=== PATIENT | female | born 1960 | race Caucasian/White ===

== ENCOUNTER 2018-09-03 09:23 | Outpatient (REF) | payer OTHER, SELFPAY ==
[2018-09-03 12:48] LABS: Hemoglobin A1C 5.1 % (4.5-6.2)
[2018-09-03 13:00] LABS: Anion Gap 9.5 mmol/L (3-11); CO2 26.5 mmol/L (21.0-32.0); Chloride 106 mmol/L (98-107); Potassium 4.2 mmol/L (3.5-5.1); Sodium 142 mmol/L (136-145)
[2018-09-03 14:34] LABS: BUN 12 mg/dL (7-18); CREATININE 0.72 mg/dL (0.55-1.02); Calcium 9.2 mg/dL (8.5-10.1); Ferritin 192 ng/mL (8-388); Glucose 94 mg/dL (70-100)
== END 2018-09-03 09:43 ==
LOC: NCHCN 09:23
PROVIDERS: PCP Family Medicine; Visit Provider Family Medicine
DX: R73.9 Hyperglycemia, unspecified (principal); G25.81 Restless legs syndrome
CPT/HCPCS: 80048; 82728; 83036

== ENCOUNTER 2019-09-03 09:09 | Outpatient (REF) | payer OTHER, SELFPAY ==
[2019-09-03 12:47] LABS: Anion Gap 8.6 mmol/L (3-11); BUN 16 mg/dL (7-18); CO2 27.4 mmol/L (21.0-32.0); CREATININE 0.81 mg/dL (0.55-1.02); Calcium 9.1 mg/dL (8.5-10.1); Chloride 103 mmol/L (98-107); Glucose 92 mg/dL (70-100); Potassium 4.7 mmol/L (3.5-5.1); Sodium 139 mmol/L (136-145)
== END 2019-09-03 09:29 ==
LOC: NCHCN 09:09
PROVIDERS: PCP Family Medicine; Visit Provider Family Medicine
DX: R73.9 Hyperglycemia, unspecified (principal); I10 Essential (primary) hypertension
CPT/HCPCS: 80048

== ENCOUNTER 2019-10-05 14:51 | Emergency (ER) | payer OTHER, SELFPAY ==
[2019-10-05 14:54] VITALS: BP 162/107; PULSE 141; RESP 22; TEMP 37; O2SAT 96
--- NOTE | 2019-10-05 15:07 | ED.GENADUL_ITS ---
Discharge Plan Disposition Patient Disposition: HOME Condition: Improving Discharge Details Chief Complaint: Vascular Clinical Impression: Deep vein thrombosis of left lower extremity Primary Care Provider: Kati Massey ED Provider: Jarod Varghese Home Meds and New Rx's Prescriptions: New apixaban 5 mg tablet 10 mg PO BID Qty: 30 RF: 0 Continued multivitamin 1 EACH capsule 1 ea PO DAILY RF: 0 acetaminophen [Tylenol] 325 MG tablet 650 mg PO Q4H PRN PRNQty: 30 RF: 0 amlodipine 5 mg Tablet 5 mg PO DAILY RF: 0 paroxetine HCl 10 mg Tablet 10 mg PO DAILY RF: 0 Estroven Cmplt Menopause Rlf 4 mg Tablet 4 mg PO DAILY RF: 0 Discontinued ibuprofen [Advil] 200 MG tablet 600 - 800 mg PO TID PRNRF: 0 Discharge Instructions Instructions: Deep Venous Thrombosis (ED) Additional Instructions: Please begin apixaban/Eliquis as prescribed. The dosing will be 10 mg twice daily for 7 days, then 5 mg twice daily. I discussed her case tonight with Dr. Og and they will call you to arrange an outpatient follow-up in clinic for recheck. I recommend you hold ibuprofen while taking Eliquis. You may use Tylenol if needed for aches or pains. Continue all other regular medications, including amlodipine. Return if you develop chest pain or difficulty breathing. Medical Decision Making 58-year-old female presents with left leg swelling and cramping discomfort over 2 days time. She was anxious that her amlodipine may have been the cause and therefore stopped the medication on her own. States she is had no medication since the swelling began. She denies chest pain or shortness of breath. No prolonged immobilization or trauma. Most consistent with a probable DVT as well as overlying anxiety and mild reflex tachycardia given the patient's lack of amlodipine for 2 days time. She is given her amlodipine dose for today, Ativan was ordered but held after patient improved on her own. The patient's pulse corrected to 40-50 points to 90-100 following these interventions. The patient's ultrasound reveals positive DVT of the distal left external iliac through the proximal posterior tibial veins. I discussed the case with Dr. Og, on-call for Dr. Massey. We will start the patient on apixaban, she will have a follow-up in clinic in approximate 1 week's time. She understands homecare as well as emergent indications for reevaluation. HPI General Mode of arrival: ambulatory . Date/Time Provider Initiated Documentation: 10/05/19 14:51 . Limitations to Documentation: no limitations . Information obtained by: patient and family . History of Present Illness 58 year old F presents to the emergency department with the chief complaint of Left leg swollen and cramping discomfort for 2 days, described as moderate, Quality is described as dull and constant, and is localized to the lower extremity. Patient reports no radiation. Patient started experiencing this day(s) and it has been constant. No relieving factors improve symptom(s), No exacerbating factors reported . Patient notes other (Anxious. She is not taking her amlodipine due to fear of it causing swelling of her left leg). Patient did receive the following treatments prior to arrival, none Related Data Home Medications Medication Instructions Recorded Confirmed multivitamin 1 ea PO DAILY NS 09/30/17 10/05/19 acetaminophen [Tylenol] 650 mg PO Q4H PRN PRN #30 tab 11/06/17 10/05/19 Estroven Cmplt Menopause Rlf 4 mg PO DAILY 10/05/19 10/05/19 amlodipine 5 mg PO DAILY 10/05/19 10/05/19 apixaban 10 mg PO BID #30 tab 10/05/19 paroxetine HCl 10 mg PO DAILY 10/05/19 10/05/19 Previous Rx's Medication Instructions Recorded acetaminophen [Tylenol] 650 mg PO Q4H PRN PRN #30 tab 11/06/17 apixaban 10 mg PO BID #30 tab 10/05/19 Allergies Allergy/AdvReac Type Severity Reaction Status Date / Time codeine AdvReac Intermediate Nausea Unverified 10/05/19 15:02 morphine AdvReac Intermediate Nausea Unverified 10/05/19 15:02 General Stated Complaint: Vascular CRISTAL: 3 Review of Systems Narrative: Anxious. Not taking her amlodipine. No chest pain or shortness of breath. [facility] Medical History Cholelithiasis colon polyp Hypertension Obesity Surgical History (Updated 08/12/18 @ 14:36 by Cnekt IA) Biopsy of breast (~2001) Cholecystectomy (11/06/17) Colonoscopy - IV Sedation Colonoscopy - MAC (11/03/17) Family History Father Personal history of malignant neoplasm Throat cancer Social History Smoking/Tobacco Use Status: Never Alcohol Intake: current Alcohol Intake frequency: holidays/special occasions only Drug use: Never Substance use type: does not use Do you feel safe at home: Yes Do you feel safe in your relationship?: Yes Exam Narrative Exam Narrative: GEN: awake, alert, oriented 3. Pleasant, well groomed, interactive. HEAD: Normocephalic, atraumatic ENT: Mucous membranes moist, oropharynx unremarkable, External ear exam unremar kable EYES: PERRL, EOMI NECK: Full ROM, no NITHIN, no menigismus CHEST/RESP: Nontender, clear to auscultation bilateral, no wheeze/rhonchi/rales CARDIOVASCULAR: RRR, no murmur, rub raymundo. 2+ Rad pulse bilateral ABDOMEN: Soft, nontender, no mass. +Bowel sounds EXT: Full ROM, left leg edematous and swollen from the mid thigh distally. Palpable femoral pulses bilaterally. Neuro: Grossly normal neurologic exam, conversant, interactive. Psych: Speech fluent, thoughts congruent, affect anxious and tearful Course Vital Signs Vital signs: Vital Signs Temperature 37 C 10/05/19 14:54 Pulse 141 H 10/05/19 14:54 Respiratory Rate 22 10/05/19 14:54 Blood Pressure 162/107 H 10/05/19 14:54 Pulse Oximetry 96 10/05/19 14:54 Temperature 37 C 10/05/19 14:54 Temperature Source Temporal Artery Scan 10/05/19 14:54 Pulse 141 H 10/05/19 14:54 Respiratory Rate 22 10/05/19 14:54 Respiratory Effort Non-Labored 10/05/19 15:01 Blood Pressure 162/107 H 10/05/19 14:54 Blood Pressure Position Sitting 10/05/19 14:54 Pulse Oximetry 96 10/05/19 14:54 Oxygen Delivery Method Room Air 10/05/19 14:54 Oxygen Flow Rate 0 10/05/19 14:54 Pain Level 8 10/05/19 14:54
--- NOTE | 2019-10-05 15:26 | DI.US_ITS ---
EXAM: US LOWER EXTREMITY VENOUS LT CLINICAL HISTORY: Swelling and pain, r/o DVT TECHNIQUE: Ultrasound performed using standard protocol. COMPARISON: No exams were available for comparison FINDINGS: Thrombus is visible from the distal left external iliac vein through the common femoral, superficial femoral, popliteal and into one of the posterior tibial veins in the proximal calf. The remainder of the additional calf veins are free of thrombus. No superficial thrombophlebitis is seen. There is no Lacey's cyst or hematoma. IMPRESSION: Deep venous thrombosis from the distal left external iliac through one of the proximal posterior tibi al veins.
[2019-10-05 15:33] LABS: Abs Immature Grans 0.01 k/cumm (0.0-0.09); Absolute Basophil Count 0.03 k/cumm (0.0-0.2); Absolute Eosinophil Count 0.27 k/cumm (0.0-0.7); Absolute Lymphocyte Count 1.23 k/cumm (1.2-3.4); Absolute Monocyte Count 0.79 k/cumm (0.11-0.7); Absolute Neutrophil Count 6.95 k/cumm (1.2-6.7); Basophils % 0.3; Eosinophils % 2.9; HGB 13.6 g/dL (12.0-15.5); Immature Grans % 0.1; Lymphocytes % 13.3; Mean Corpuscular Hemoglobin 30.4 pg (27.0-33.0); Mean Corpuscular Volume 89.5 fL (80-95); Mean Platelet Volume 9.8 fL (8.0-11.0); Monocytes % 8.5; Neutrophils % 74.9; Platelet Count 168 x1000/uL (130-400); RBC 4.47 m/cumm (4.00-5.20); RBC Distribution Width 12.2 % (11.7-14.6); White Blood Cell Count 9.28 k/cumm (4.4-10.8)
[2019-10-05 15:45] LABS: ALT 11 U/L (14-59); AST 17 U/L (15-37); Albumin 3.9 g/dL (3.4-5.0); Alkaline Phosphatase 90 U/L (46-116); Anion Gap 11.8 mmol/L (3-11); BUN 10 mg/dL (7-18); Bilirubin, Total 0.8 mg/dL (0.2-1.0); CO2 25.2 mmol/L (21.0-32.0); CREATININE 0.86 mg/dL (0.55-1.02); Calcium 9.3 mg/dL (8.5-10.1); Chloride 103 mmol/L (98-107); Glucose 133 mg/dL (74-106); Potassium 3.7 mmol/L (3.5-5.1); Sodium 140 mmol/L (136-145); Total Protein 7.8 g/dL (6.4-8.2)
[2019-10-05 15:49] LABS: PTT Activated 24.7 sec (21.0-31.4); Prothrombin Time 10.1 sec (9.3-11.0)
[2019-10-05] MEDS: Normal Saline 250 ML 500 ML IV (16:00)
[2019-10-05] MEDS: amLODIPine 5 MG TAB PO (16:05)
[2019-10-05] MEDS: Apixaban 5 MG TAB 10 MG PO (16:30)
[2019-10-05 19:32] VITALS: BP 98/44; PULSE 85; RESP 16; TEMP 37.2; O2SAT 99
== END 2019-10-05 16:45 | disposition home or self-care (01) ==
PROVIDERS: Emergency Provider Emergency Medicine; PCP Family Medicine
DX: I82.402 Acute embolism and thrombosis of unspecified deep veins of left lower extremity (principal); R60.0 Localized edema; F41.9 Anxiety disorder, unspecified; T46.5X6A Underdosing of other antihypertensive drugs, initial encounter; Z91.128 Patient's intentional underdosing of medication regimen for other reason; I10 Essential (primary) hypertension
CPT/HCPCS: 36415; 80053; 96360; 99284; 85025; 85610; 85730; 93971; J3490

== ENCOUNTER 2019-11-03 11:14 | Outpatient (CLI) | payer OTHER, SELFPAY ==
[2019-11-05 14:44] LABS: ANA Interpretation Positive (Negative)
[2019-11-05 16:39] LABS: Factor V Leiden(R506Q) Mut Negative (Negative)
[2019-11-05 16:45] LABS: Prothrombin G20210A Mutation Negative (Negative)
== END 2019-11-03 11:34 ==
PROVIDERS: PCP Family Medicine; Visit Provider Family Medicine
DX: I82.402 Acute embolism and thrombosis of unspecified deep veins of left lower extremity (principal)
CPT/HCPCS: 36415; 81240; 81241; 86038

== ENCOUNTER 2019-12-08 01:15 | Outpatient (CLI) | payer OTHER, SELFPAY ==
--- NOTE | 2019-12-08 | DI.MAMMO_ITS ---
EXAM: MG MAMMO SCREENING CLINICAL HISTORY: [facility] Z00.00, SCREENING. TECHNIQUE: Full field digital CC and MLO mammographic images were obtained with 3D tomosynthesis and utilizing computer aided detection (CAD). COMPARISON: . 2009 through 2016 FINDINGS: Breast Density - Category B - Scattered areas of fibroglandular density There are surgical clips in the left breast related to previous biopsy. There is mild scarring in th is region. Masses: None seen. Microcalcifications: No suspicious pleomorphic-type calcifications are seen. Skin Thickening/Nipple Retraction: None. Axilla: Unremarkable. IMPRESSION: 1. BI-RADS Cat 2 - Benign Findings No significant interval change with no specific features of susu duarte noted. 2. Unless there is more urgent need, screening mammography is recommended, as per [employer] guidelines. A negative radiographic report should not delay biopsy if a dominant or clinically suspicious mass is present. Up to ten percent of cancers are not identified on mammography. A negative report may reinforce clinical impression. Adenosis and dense breasts may obscure an underlying neoplasm. False positive reports average 6 to 10%. Patient will receive a letter notifying them of these results.
== END 2019-12-08 01:35 ==
PROVIDERS: PCP Family Medicine; Visit Provider Family Medicine
DX: Z12.31 Encounter for screening mammogram for malignant neoplasm of breast (principal)
CPT/HCPCS: 77063; 77067

== ENCOUNTER 2019-12-28 02:40 | Outpatient (CLI) | payer OTHER, SELFPAY ==
--- NOTE | 2019-12-28 | DI.US_ITS ---
EXAM: US LOWER EXTREMITY VENOUS LT CLINICAL HISTORY: ACUTE DVT LT LEG I82.402 TECHNIQUE: Ultrasound performed using standard protocol. COMPARISON: US LOWER EXTREMITY VENOUS LT from 10/05/2019 FINDINGS: The left external iliac vein shows noncompressible thrombus. Distal to this area the common femoral , superficial femoral, popliteal and calf veins appear free of thrombus. No saphenous thrombosis is seen. IMPRESSION: Deep venous thrombosis in the left external iliac vein. Remainder of the deep venous system is free of thrombus. DATA REPOSITORY:
== END 2019-12-28 03:00 ==
PROVIDERS: PCP Family Medicine; Visit Provider Family Medicine
DX: I82.422 Acute embolism and thrombosis of left iliac vein (principal)
CPT/HCPCS: 93971

== ENCOUNTER 2020-06-16 15:53 | Outpatient (REF) | payer OTHER, SELFPAY ==
--- NOTE | 2020-06-16 13:45 | PAPFT_PTH ---
PATIENT: Fany Bowens LOC: [facility]#:[id number] AGE/SX: 59/F ROOM: RE06/16/[address]: Kati Massey : 1960 BED: DIS: 06/16/2020 SPEC #: [id number] RECD: 06/19/20 13:06 STATUS: PIERCE REAdan #: [id number] MARTHA: 06/16/20 13:[address]: Kati Massey DEPT: [facility] Cytology RECD BY: Ariane Delgado Tissues: 1 - CX/ENDOCX FOR PAP SMEARS Procedures: PAP THIN PREP/[facility] Screening HPV DNA PROBE Comments: [id number]
== END 2020-06-16 16:13 ==
LOC: NCHCN 15:53
PROVIDERS: PCP Family Medicine; Visit Provider Family Medicine
DX: Z12.4 Encounter for screening for malignant neoplasm of cervix (principal); Z11.51 Encounter for screening for human papillomavirus (HPV)
CPT/HCPCS: 88142; 87624

== ENCOUNTER 2021-04-18 08:28 | Outpatient (REF) | payer OTHER, SELFPAY ==
[2021-04-18 13:28] LABS: HCT 43.2 % (36.0-46.0); HGB 14.3 g/dL (11.2-15.7); MCH 31.4 pg (27.0-33.0); MCHC 33.1 % (32.0-36.0); MCV 94.9 fL (80-95); MPV 9.4 fL (8.0-11.0); Platelet Count 271 10^3/uL (130-400); RBC 4.55 10^6/uL (3.93-5.22); RDW 12.1 % (11.7-14.6); RDW-SD 42.3 fL; WBC 5.36 10^3/uL (4.4-10.8)
[2021-04-18 13:46] LABS: Hemoglobin A1C 5.3 % (<5.7)
[2021-04-18 13:47] LABS: ALT 17 U/L (14-59); AST 15 U/L (15-37); Albumin 3.8 g/dL (3.4-5.0); Alkaline Phosphatase 87 U/L (46-116); Anion Gap 9.8 mmol/L (3-11); BUN 20 mg/dL (7-18); Bilirubin, Total 0.4 mg/dL (0.2-1.0); CO2 25.2 mmol/L (21.0-32.0); CREATININE 0.8 mg/dL (0.55-1.02); Calcium 9.1 mg/dL (8.5-10.1); Calculated LDL 157 mg/dL (<100); Chloride 108 mmol/L (98-107); Cholesterol 276 mg/dL (<200); Glucose 100 mg/dL (74-106); HDL Cholesterol 108 mg/dL (40-60); Magnesium 2.1 mg/dL (1.8-2.4); Potassium 4.9 mmol/L (3.5-5.1); Sodium 143 mmol/L (136-145); Total Protein 7.1 g/dL (6.4-8.2); Triglyceride 59 mg/dL (<150)
== END 2021-04-18 08:29 | disposition home or self-care (01) ==
LOC: NCHCN 08:28
PROVIDERS: PCP Family Medicine; Visit Provider Family Medicine
DX: I10 Essential (primary) hypertension (principal); R60.0 Localized edema; E66.9 Obesity, unspecified
CPT/HCPCS: 80053; 80061; 85027; 83036; 83735

== ENCOUNTER 2021-08-07 23:15 | Emergency (ER) | payer OTHER, SELFPAY ==
[2021-08-07] VITALS (9 sets, daily range): BP systolic 128–137; BP diastolic 72–82; PULSE 77–89; RESP 17–24; TEMP 36.4; O2SAT 96–98
--- NOTE | 2021-08-07 23:15 | DI.CT_ITS ---
Exam(s) CT CHEST/ABD/PEL W EXAM: CT CHEST/ABD/PEL W CLINICAL HISTORY: fall, altered, drunk, vomiting and diarrhea. TECHNIQUE: Imaging Protocol: Axial computed tomography images with coronal and sagittal reformatted images were created and reviewed CONTRAST MATERIAL: Intravenous: Omnipaque 350 Contrast volume:100 ml Oral: None COMPARISON: No exams were available for comparison FINDINGS: CHEST: LUNGS: . No large lung contusion. No pleural effusions. No pneumothorax. No obvious no clavicle no r rib fractures. MEDIASTINUM: No evidence of significant mediastinal hematoma. No obvious aortic trauma. No incident al adenopathy. There is a large nodule in the right thyroid lobe which measures approximately 2 by 1 .9 cm. Follow-up ultrasound is recommended. CARDIAC: Heart size normal. Very small pericardial effusion.Caliber of the thoracic aorta is within normal limits. OSSEOUS: No significant osseous lesions.. ABDOMEN: There is no ascites. LIVER: There is a well-defined hypodensity measuring 3 by 2 cm which has appearance of a probable messi ign cyst. Another smaller 4-5 millimeter hypodensity lower down the right hepatic lobe is noted whic h is either small cyst or hemangioma. GALLBLADDER/BILIARY: The gallbladder surgically absent. CBD is not dilated. PANCREAS: No evidence of pancreatic mass nor dilatation of the pancreatic duct. SPLEEN: Spleen size is normal. No evidence of splenic laceration. Splenic and portal veins are hagan nt. ADRENALS: There are no significant adrenal masses. KIDNEYS: No calculi nor hydronephrosis. No solid renal masses. Small cyst in superior pole left kidne y measuring 6 millimeters. ABDOMINAL AORTA: Abdominal aorta is intact as are the aortoiliac segments bilaterally. LYMPH NODES: There is no retroperitoneal nor paraaortic adenopathy. ABDOMINAL WALL: No evidence of significant anterior abdominal wall nor inguinal hernia. GI: No evidence of bowel wall hematoma nor mesenteric hematoma. PELVIS: LYMPH NODES: There is no intrapelvic nor inguinal adenopathy. GI: No evidence of appendicitis.No evidence of sigmoid diverticulitis. URINARY BLADDER: No calculi nor masses evident REPRODUCTIVE: Uterus size age-appropriate. No abnormal adnexal masses although there are few slightl y prominent veins in the lower pelvis. OSSEOUS: No significant osseous lesions. IMPRESSION: 1. No significant intrathoracic trauma findings. Incidentally noted is a prominent nodule in the rig ht thyroid lobe which requires ultrasound follow-up when clinically feasible. 2. No significant acute trauma sequelae in the abdomen and pelvis 3. Benign cysts in the liver, as described above.. 4. Gallbladder surgically absent. The biliary tree is not dilated. RADIATION DOSE DELIVERED: 1,626.57mGy.cm Total DLP DATA REPOSITORY: All CT scans at this facility are submitted to the National Radiology Data Registry (NRDR) Dose Index Registry (DIR) with the [employer] ([employer]). RADIATION OPTIMIZATION: All CT scans at this facility use at least one of these dose optimization te chniques: automated exposure control; mA and/or kV adjustment per patient size (includes targeted exa ms where dose is matched to clinical indication); or iterative reconstruction.
--- NOTE | 2021-08-07 23:15 | RT.EKG_ITS ---
APPROVED REPORT Exam: Resting ECG Reason for Exam: fall Patient Location: E HR:78 bpm ECG Measurements Heart Rate 78 AXIS OR 169 P 63 QRSd 101 QRS 44 QT 418 T 37 QTc 477 Conclusion Sinus rhythm...normal P axis, V-rate 60- 99 Physician: Rate 78, intervals normal, sinus rhythm, no significant ST elevation or depression. Inver jocelin T waves present in V1. No evidence of STEMI. No other significant abnormalities
--- NOTE | 2021-08-07 23:15 | DI.CT_ITS ---
Exam(s) CT HEAD CERV SPINE FACIAL WO EXAM: CT HEAD CERV SPINE FACIAL WO CLINICAL HISTORY: fall, hit face, on thinners. TECHNIQUE: Imaging Protocol: Axial computed tomography images with coronal and sagittal reformatted images were created and reviewed COMPARISON: No exams were available for comparison FINDINGS: CT BRAIN: There are no skull fractures. Paranasal sinus findings (see facial CT report). There is no evidence of intracranial hemorrhage, mass effect, or shift of midline structures. There are no extra-axial fluid collections. The ventricles are not enlarged or shifted and there is no blo od within the ventricular system nor within the basal cisterns. CT MAXILLOFACIAL BONES: Subtle nondisplaced fractures right maxillary sinus. No evidence of orbital blowout fracture. Small amount of mucosal thickening-fluid in the right maxillary sinus. No evidence of nasal bone fracture . CT CERVICAL SPINE: There is a minimally displaced fracture of the right-side of the odontoid and adjacent C2 vertebral b dashawn. Fracture line does not extend to the superior aspect of the odontoid nor into the foramen trans verse area and posterior osseous elements. No other fractures evident. No malalignment of the facet joints. Degenerative disc disease at C5-6 level noted. IMPRESSION: The main finding here is a fracture involving the right-side of the odontoid and into the C2 vertebra l body. Fracture does not extend to the level of the inferior C2 endplate nor into the pedicles and laminae a nor with into the transverse processes. No retropulsed bone fragments into the spinal titi l. There does not appear to be prominent surrounding hematoma nor acute compromise of the spinal can al. No other fractures identified in the cervical spine. Nondisplaced fractures of the inferolateral wall the right maxillary sinus. No evidence of orbital b lowout fracture. No evidence of nasal bone fracture nor fracture of the mandible and zygomatic arche s. No acute intracranial findings. Study 1st read by [facility]. RADIATION DOSE DELIVERED: 2,007.35mGy.cm Total DLP 2,007.35mGy.cm Total DLP DATA REPOSITORY: All CT scans at this facility are submitted to the National Radiology Data Registry (NRDR) Dose Index Registry (DIR) with the [employer] (ACR). RADIATION OPTIMIZATION: All CT scans at this facility use at least one of these dose optimization te chniques: automated exposure control; mA and/or kV adjustment per patient size (includes targeted exa ms where dose is matched to clinical indication); or iterative reconstruction.
[2021-08-07 23:35] LABS: Abs Immature Grans 0.11 10^3/uL (0.0-0.06); Absolute Basophil Count 0.05 10^3/uL (0.0-0.2); Absolute Eosinophil Count 0.25 10^3/uL (0.0-0.7); Absolute Lymphocyte Count 2.74 10^3/uL (1.2-3.4); Absolute Monocyte Count 0.41 10^3/uL (0.1-0.8); Absolute Neutrophil Count 4.35 10^3/uL (1.2-6.7); Basophils % 0.6; Eosinophils % 3.2; HCT 40.4 % (36.0-46.0); HGB 13.5 g/dL (11.2-15.7); Immature Grans % 1.4; Lymphocytes % 34.6; MCHC 33.4 % (32.0-36.0); MCV 92.7 fL (80-95); Monocytes % 5.2; Nucleated RBC 0 %; Platelet Count 225 10^3/uL (130-400); RBC 4.36 10^6/uL (3.93-5.22); RDW 11.7 % (11.7-14.6); RDW-SD 40.2 fL; WBC 7.91 10^3/uL (4.4-10.8)
[2021-08-07 23:36] LABS: BE (Venous) -1 mmol/L (-2-3); HCO3 (Venous) 25 mmol/L (23-28); O2 Sat (Venous) 61 %; TCO2 (Venous) 23 mmol/L (24-29); pCO2 (Venous) 52 mmHg (41-51); pO2 (Venous) 35 mmHg
--- NOTE | 2021-08-07 23:37 | W.ED.GENAD ---
Discharge Plan Disposition Patient Disposition: [facility] Condition: Stable Discharge Details Clinical Impression: Closed type III fracture of odontoid process, Elevated ETOH level, Fall, Contusion of face Primary Care Provider: Kati Massey ED Provider: Kleber Saldivar Home Meds and New Rx's Prescriptions: No Action multivitamin 1 EACH capsule 1 ea PO DAILY RF: 0 acetaminophen [Tylenol] 325 MG tablet 650 mg PO Q4H PRN PRNQty: 30 RF: 0 amlodipine 5 mg Tablet 5 mg PO DAILY RF: 0 paroxetine HCl 10 mg Tablet 10 mg PO DAILY RF: 0 Estroven Cmplt Menopause Rlf 4 mg Tablet 4 mg PO DAILY RF: 0 apixaban 5 mg tablet 10 mg PO BID Qty: 30 RF: 0 Medical Decision Making 60-year-old female with a past medical history of a DVT on Eliquis, hypertension, previous gallstones, cholecystectomy, who presents today for evaluation of fall, intoxication, and trauma to the face. Per EMS the patient drank a bottle of wine earlier and subsequently fell and hit her face. EMS was called, patient was not able to get up. She was brought in for further evaluation. In transit the patient had an episode of vomiting and diarrhea. Patient admits to pain in her face. She denies any pain anywhere else however she is notably intoxicated. EMS did attempt to place a c-collar however the patient started vomiting and ripped this off. No other complaints at this time. No other modifying factors Physical exam demonstrates abrasions and bruises over the face, no hemotympanums or other significant abnormalities. Patient does demonstrate a small excoriation over the right hip, and tenderness over the midline cervical spine. No other evidence of significant trauma otherwise. Patient does move all extremities. C-collar was applied on arrival. Because of the patient's blood thinner use there is concern for intracranial bleeding. We will get a CT scan of the head and neck, because of the fall and the patient's altered status as well as her vomiting and diarrhea we will get a CT scan of the chest and abdomen. We will gently rehydrate monitor closely and reassess. 2:[address] scan has returned, there is evidence of a type III odontoid fracture at C2. Patient has remained on C-spine precautions. Aside for a small maxillary sinus wall fracture on the right no other acute process otherwise on the CT head, chest abdomen or pelvis. Laboratory work-up is relatively unremarkable. Lipase is slightly high at 776. Urinalysis shows a few RBCs but is otherwise unremarkable. Urine drug screen negative, alcohol elevated at 226. Covid test is negative. With the patient's evidence of the unstable cervical spine fracture we did consult [facility] and discussed the case with trauma. Discussed the case with Dr. Figueroa, he agrees with the assessment and plan. Patient will be brought down/transferred to [facility] for further neurosurgical intervention. Of note I did go back and reassess the patient prior to transfer, and she still demonstrates good 5 out of 5 strength in both of her upper extremities and lower extremities, good sensation throughout her arms, no clinical evidence at this time of central or anterior cord syndrome. I have extensively reviewed the treatment plan with the patient. I have addressed all patient concerns at this time. I have also discussed the plan with the admitting physician and they agree with the current assessment and plan and have agreed to assume responsibility for the patient. All parties demonstrate verbal understanding and agreement with our assessment and plan at this time. The documentation in this chart was dictated using [employer] dictation software. Please excuse any dictation errors. At time of transfer the patient was reassessed and continued to demonstrate current medical stability. No signs of acute respiratory distress requiring intubation, hemodynamic instability requiring pressor support, or rapidly declining mental status. The patient is stable for transport. EKG 23: 26 Rate 78, intervals normal, sinus rhythm, no significant ST elevation or depression. Inverted T waves present in V1. No evidence of STEMI. No other significant abnormalities FINDINGS: Brain: Normal. No hemorrhage. Unremarkable white matter. No mass effect. Extra-axial space: No evidence of subdural hemorrhage. Cerebral ventricles: No ventriculomegaly. Paranasal sinuses: Moderate mucosal thickening noted in the sphenoid sinus and right maxillary sinus. Mastoid air cells: Visualized mastoid air cells are well aerated. Bones/joints: Negative for skull fracture. Soft tissues: Right frontal scalp hematoma. No foreign bodies. IMPRESSION: Negative for intracranial hemorrhage or other acute intracranial abnormality FINDINGS: Orbital cavity: Orbits are normal. Globes are unremarkable. Bones/joints: Nondisplaced fracture noted at the inferolateral wall of the right maxillary sinus. Bony orbits are intact without fracture. No evidence of fracture in the mandible. Nasal bones are intact. Zygomatic arches are intact. Paranasal sinuses: Mucosal thickening noted in the ethmoid air cells call the sphenoid sinus, and right maxillary sinus. Soft tissues: Right frontal scalp hematoma. Foci of air are noted in the soft tissues lateral to the right maxillary sinus. Several teeth are missing. IMPRESSION: Nondisplaced fractures in the maxillary sinus wall on the right. FINDINGS: Bones/joints: A fracture is noted at the C2 level. An oblique mildly comminuted fracture line extends through the base of the odontoid process on the right. The fracture continues into the vertebral body, but does not extend through to the left of the odontoid process or the inferior C2 endplate. The C2 pedicles and articular processes are intact without fracture. The transverse processes and foramen transversarium are intact. There are no other fractures observed in the cervical spine. The C1 ring is intact. The occipital condyles are intact. Discs/Spinal canal/Neural foramina: Moderate disc space narrowing and osteophyte formation are noted at C5-C6. There is no significant spinal canal stenosis or neural foraminal narrowing. Thyroid: Solid nodule right thyroid 1.9 cm. Lungs: Lung apices are normal. Soft tissues: Unremarkable. IMPRESSION: 1. Fracture at C2, considered an incomplete type 3 odontoid fracture. 2. Solid nodule right thyroid greater than 1.5 cm. Advise nonemergent follow-up ultrasound. REFERENCES: Joe Roach., et al. (2015). Managing Incidental Thyroid Nodules Detected on Imaging: White Paper of the ACR Incidental Thyroid Findings Committee. Journal of the [place] [employer], 12(2), 143-150. Thank you for allowing us to participate in the care of your patient. Dictated and Authenticated by: Damien Winston MD 08/08/2021 1:38 AM Eastern Time ([place] & [place]) HPI General Date/Time Provider Initiated Documentation: 08/07/21 23:24. HPI Narrative: 60-year-old female with a past medical history of a DVT on Eliquis, hypertension, previous gallstones, cholecystectomy, who presents today for evaluation of fall, intoxication, and trauma to the face. Per EMS the patient drank a bottle of wine earlier and subsequently fell and hit her face. EMS was called, patient was not able to get up. She was brought in for further evaluation. In transit the patient had an episode of vomiting and diarrhea. Patient admits to pain in her face. She denies any pain anywhere else however she is notably intoxicated. EMS did attempt to place a c-collar however the patient started vomiting and ripped this off. No other complaints at this time. No other modifying factors Related Data Home Medications Medication Instructions Recorded Confirmed multivitamin 1 ea PO DAILY NS 09/30/17 10/05/19 acetaminophen [Tylenol] 650 mg PO Q4H PRN PRN #30 tab 11/06/17 10/05/19 Estroven Cmplt Menopause Rlf 4 mg PO DAILY 10/05/19 10/05/19 amlodipine 5 mg PO DAILY 10/05/19 10/05/19 apixaban 10 mg PO BID #30 tab 10/05/19 paroxetine HCl 10 mg PO DAILY 10/05/19 10/05/19 Previous Rx's Medication Instructions Recorded acetaminophen [Tylenol] 650 mg PO Q4H PRN PRN #30 tab 11/06/17 apixaban 10 mg PO BID #30 tab 10/05/19 Allergies Allergy/AdvReac Type Severity Reaction Status Date / Time codeine AdvReac Intermediate Nausea Unverified 10/05/19 15:02 morphine AdvReac Intermediate Nausea Unverified 10/05/19 15:02 General CRISTAL: 3 Review of Systems All systems reviewed & are unremarkable except as noted in HPI and below PFSH Medical History (Updated 08/08/21 @ 02:41 by Kleber Saldivar DO) Cholelithiasis colon polyp Hypertension Obesity Surgical History Biopsy of breast (~2001) Cholecystectomy (11/06/17) Colonoscopy - IV Sedation Colonoscopy - MAC (11/03/17) Family History Father Personal history of malignant neoplasm Throat cancer Social History Smoking/Tobacco Use Status: Never Smoking risk assessment performed?: Yes Alcohol Intake: current Alcohol Intake frequency: holidays/special occasions only Drug use: Never Substance use type: does not use Do you feel safe at home: Yes Do you feel safe in your relationship?: Yes Exam Narrative Exam Narrative: 1.Const: Well-nourished, Well-developed, appearing stated age 2.Eyes: PERRL, no conjunctival injection, and symmetrical lids. 3.ENT: Mild bruising to the face and nose. No bleeding lacerations. Mild bruising to the orbits. No nasal septal hematoma. Moist MM. Neck: Symmetric, trachea midline, No thyromegaly. There is no evidence of raccoon eyes, harvey sign, CSF rhinorrhea, mastoid tenderness, cranial crepitus, hemotympanum, exophthalmos, or hyphema. Patient demonstrates intact dentition with no signs of tooth avulsion or fracture, no signs of jaw deformity, no evidence of a LeFort's fracture, with an intact palate, nose and orbital region. There is no evidence of a nasal septal hematoma. No proptosis. Jaw closes symmetrically. Airway is clear. 4.CVS: Regular rate and rhythm, Normal s1 and s2. No murmurs, carotid bruits, rubs, or gallops. Radial pulses 2+ bilaterally and symmetric. Dorsalis pedis pulses 2+ bilaterally and symmetric. 2+ capillary refill. No evidence of distant heart sounds. No extremity edema. No evidence of gross hemorrhage. 5.RESP: Airway clear, no obstructions. No abrasions or ecchymosis. Chest movement symmetric with respirations. No chest wall tenderness. Trachea midline. No crepitus. No step offs. No paradoxical movements. Lungs are clear to auscultation bilaterally. No rales, rhonchi, wheezing or stridor. Breath sound symmetric. No Sucking chest wounds. No clinical evidence of significant chest trauma. 6.GI: Soft, nondistended, nontender. Bowel tones normoactive. No masses or organomegaly. No ecchymosis or abrasions. No periumbilical ecchymosis or seatbelt sign. No flank or CVA tenderness. No clinical signs of significant trauma. Genital Exam: Intact and traumatically unremarkable genital and rectal exam with no significant bruising, blood, or deformity. Rectal tone normal, stool without gross blood. No clinical evidence of significant abdominal trauma. 7.MSK: No gross deformities or discolorations or lesions. There is a mild bruise/excoriation over the right hip though. Tolerates full range of motion of extremities without tenderness. All compartments of upper and lower extremities are soft with no tenderness. Vascular exam demonstrates brisk capillary refill and intact pulses in all extremities. Pelvic exam demonstrates a stable pelvis, nontender to lateral compression and palpation of symphysis pubis.. No clinical evidence of significant musculoskeletal trauma. Patient does demonstrate midline cervical spine tenderness at C4-C5-C6, no thoracic or lumbar spine tenderness 8.Skin: Warm, Dry. No rashes or lesions. Please see musculoskeletal 9.Neuro: Patient moves all extremities, is notably intoxicated. No clear evidence focal neurologic deficits. 10.Psych: Intoxicated
[2021-08-07] MEDS: Normal Saline 1,000 ML 1000 ML IV (23:38)
[2021-08-07 23:50] LABS: Ammonia 10 umol/L (11-32)
[2021-08-07 23:51] LABS: PTT Activated 22.3 sec (21.0-27.5); Prothrombin Time 10.1 sec (9.3-11.0)
[2021-08-08] VITALS (25 sets, daily range): BP systolic 109–134; BP diastolic 64–81; PULSE 70–104; RESP 14–24; O2SAT 92–98
[2021-08-08 00:01] LABS: ALT 21 U/L (14-59); AST 26 U/L (15-37); Albumin 3.9 g/dL (3.4-5.0); Alkaline Phosphatase 77 U/L (46-116); Anion Gap 8.9 mmol/L (3-11); BUN 9 mg/dL (7-18); Bilirubin, Total 0.3 mg/dL (0.2-1.0); CO2 27.1 mmol/L (21.0-32.0); CREATININE 0.8 mg/dL (0.55-1.02); Calcium 8.7 mg/dL (8.5-10.1); Chloride 105 mmol/L (98-107); ETHANOL BLOOD 226.9 mg/dL (<3); Glucose 135 mg/dL (74-106); Lipase 776 U/L (73-393); Potassium 3.7 mmol/L (3.5-5.1); Sodium 141 mmol/L (136-145); Total Protein 7.1 g/dL (6.4-8.2)
[2021-08-08 00:03] LABS: Troponin I < 0.05 ng/mL (<0.06)
[2021-08-08 00:07] LABS: Source Nasal/Nares
[2021-08-08 01:00] LABS: COVID-19 PCR Negative (Negative)
[2021-08-08] MEDS: Omnipaque 350 MG/ML 100 ML BTL IJ (01:36)
--- NOTE | 2021-08-08 01:38 | DI.VRAD_ITS ---
Addendum created by Damien Winston MD on 08/08/2021 1:39:28 AM EDT: THIS REPORT CONTAINS FINDINGS THAT MAY BE CRITICAL TO PATIENT CARE. The findings were verbally communicated via telephone conference with VAISHALI HIDALGO at 1:31 AM EDT on 08/08/2021. The findings were acknowledged and understood. Initial report created on 08/08/2021 1:38:24 AM EDT: PROCEDURE INFORMATION: Exam: CT Head Without Contrast Exam date and time: 08/07/2021 11:27 PM Age: 60 years old Clinical indication: Injury or trauma; Blunt trauma (contusions or hematomas); Consciousness not specified; Nose; Injury date: 08/07/21; Injury details: Fall, hit face, on thinners TECHNIQUE: Imaging protocol: Computed tomography of the head without contrast. Radiation optimization: All CT scans at this facility use at least one of these dose optimization techniques: automated exposure control; mA and/or kV adjustment per patient size (includes targeted exams where dose is matched to clinical indication); or iterative reconstruction. COMPARISON: No relevant prior studies available. FINDINGS: Brain: Normal. No hemorrhage. Unremarkable white matter. No mass effect. Extra-axial space: No evidence of subdural hemorrhage. Cerebral ventricles: No ventriculomegaly. Paranasal sinuses: Moderate mucosal thickening noted in the sphenoid sinus and right maxillary sinus. Mastoid air cells: Visualized mastoid air cells are well aerated. Bones/joints: Negative for skull fracture. Soft tissues: Right frontal scalp hematoma. No foreign bodies. IMPRESSION: Negative for intracranial hemorrhage or other acute intracranial abnormality. PROCEDURE INFORMATION: Exam: CT Maxillofacial Without Contrast Exam date and time: 08/07/2021 11:27 PM Age: 60 years old Clinical indication: Injury or trauma; Blunt trauma (contusions or hematomas); Consciousness not specified; Nose; Injury date: 08/07/21; Injury details: Fall, hit face, on thinners TECHNIQUE: Imaging protocol: Computed tomography images of the face without contrast. Radiation optimization: All CT scans at this facility use at least one of these dose optimization techniques: automated exposure control; mA and/or kV adjustment per patient size (includes targeted exams where dose is matched to clinical indication); or iterative reconstruction. COMPARISON: No relevant prior studies available. FINDINGS: Orbital cavity: Orbits are normal. Globes are unremarkable. Bones/joints: Nondisplaced fracture noted at the inferolateral wall of the right maxillary sinus. Bony orbits are intact without fracture. No evidence of fracture in the mandible. Nasal bones are intact. Zygomatic arches are intact. Paranasal sinuses: Mucosal thickening noted in the ethmoid air cells call the sphenoid sinus, and right maxillary sinus. Soft tissues: Right frontal scalp hematoma. Foci of air are noted in the soft tissues lateral to the right maxillary sinus. Several teeth are missing. IMPRESSION: Nondisplaced fractures in the maxillary sinus wall on the right. PROCEDURE INFORMATION: Exam: CT Cervical Spine Without Contrast Exam date and time: 08/07/2021 11:27 PM Age: 60 years old Clinical indication: Injury or trauma; Blunt trauma (contusions or hematomas); Consciousness not specified; Nose; Injury date: 08/07/21; Injury details: Fall, hit face, on thinners TECHNIQUE: Imaging protocol: Computed tomography images of the cervical spine without contrast. Radiation optimization: All CT scans at this facility use at least one of these dose optimization techniques: automated exposure control; mA and/or kV adjustment per patient size (includes targeted exams where dose is matched to clinical indication); or iterative reconstruction. COMPARISON: No relevant prior studies available. FINDINGS: Bones/joints: A fracture is noted at the C2 level. An oblique mildly comminuted fracture line extends through the base of the odontoid process on the right. The fracture continues into the vertebral body, but does not extend through to the left of the odontoid process or the inferior C2 endplate. The C2 pedicles and articular processes are intact without fracture. The transverse processes and foramen transversarium are intact. There are no other fractures observed in the cervical spine. The C1 ring is intact. The occipital condyles are intact. Discs/Spinal canal/Neural foramina: Moderate disc space narrowing and osteophyte formation are noted at C5-C6. There is no significant spinal canal stenosis or neural foraminal narrowing. Thyroid: Solid nodule right thyroid 1.9 cm. Lungs: Lung apices are normal. Soft tissues: Unremarkable. IMPRESSION: 1. Fracture at C2, considered an incomplete type 3 odontoid fracture. 2. Solid nodule right thyroid greater than 1.5 cm. Advise nonemergent follow-up ultrasound. REFERENCES: Joe Roach., et al. (2015). Managing Incidental Thyroid Nodules Detected on Imaging: White Paper of the ACR Incidental Thyroid Findings Committee. Journal of the [employer] [place] [employer], 12(2), 143-150. Dictated and Authenticated by: Damien iWnston MD. Ordering:QIAN Shahid MD
[2021-08-08] MEDS: Normal Saline - Diluent 50 ML VIAL IV (01:39)
--- NOTE | 2021-08-08 01:43 | DI.VRAD_ITS ---
PROCEDURE INFORMATION: Exam: CT Chest With Contrast; Diagnostic Exam date and time: 08/07/2021 1:10 AM Age: 60 years old Clinical indication: Injury or trauma; Generalized; Blunt trauma (contusions or hematomas); Injury date: 08/07/21; Injury details: Fall, altered, drunk, vomiting and diarrhea TECHNIQUE: Imaging protocol: Diagnostic computed tomography of the chest with contrast. Radiation optimization: All CT scans at this facility use at least one of these dose optimization techniques: automated exposure control; mA and/or kV adjustment per patient size (includes targeted exams where dose is matched to clinical indication); or iterative reconstruction. Contrast material: OMNIPAQUE 350; Contrast volume: 100 ml; Contrast route: INTRAVENOUS (IV); COMPARISON: SC ABDOMEN ULTRASOUND (P) 09/24/2017 3:51 PM FINDINGS: Thyroid: There is a 1.6 x 2 cm hypodense nodule in the right thyroid lobe. A punctate focus of calcification is also seen in the adjacent parenchyma. Lungs: Dependent atelectasis. Pleural spaces: Unremarkable. No pneumothorax. No pleural effusion. Heart: Heart size is normal. Trace pericardial fluid. Major airways are patent. Mediastinal space: There is mild wall thickening circumferentially of the distal esophagus which may be related to mild inflammation. Aorta: Aorta is mildly atherosclerotic without aneurysm or dissection. Lymph nodes: Unremarkable. No enlarged lymph nodes. Bones/joints: Mild degenerative changes in the spine. Soft tissues: Unremarkable. IMPRESSION: 1. No evidence of trauma. 2. Mild circumferential wall thickening of the distal esophagus which may be related to esophagitis. 3. 2 cm hypodense nodule in the right thyroid lobe. Suggest follow-up outpatient ultrasound if not previously evaluated. PROCEDURE INFORMATION: Exam: CT Abdomen And Pelvis With Contrast Exam date and time: 08/07/2021 1:10 AM Age: 60 years old Clinical indication: Injury or trauma; Generalized; Blunt trauma (contusions or hematomas); Injury date: 08/07/21; Injury details: Fall, altered, drunk, vomiting and diarrhea TECHNIQUE: Imaging protocol: Computed tomography of the abdomen and pelvis with contrast. Radiation optimization: All CT scans at this facility use at least one of these dose optimization techniques: automated exposure control; mA and/or kV adjustment per patient size (includes targeted exams where dose is matched to clinical indication); or iterative reconstruction. Contrast material: OMNIPAQUE 350; Contrast volume: 100 ml; Contrast route: INTRAVENOUS (IV); COMPARISON: SC ABDOMEN ULTRASOUND (P) 09/24/2017 3:51 PM FINDINGS: Liver: 2.4 x 1.8 cm cyst in the left liver. A 3 mm hypodensity seen in the right liver too small to characterize, also likely a cyst. Gallbladder and bile ducts: Cholecystectomy. No biliary ductal dilatation. Pancreas: Normal. No ductal dilation. Spleen: Punctate calcification in the spleen. Adrenal glands: Normal. No mass. Kidneys and ureters: Kidneys enhance symmetrically. No stones or hydronephrosis. 5 mm hypodensity in the left renal upper pole too small to characterize, likely a cyst. No imaging follow-up needed. Stomach and bowel: Unremarkable. No obstruction. No mucosal thickening. Appendix: Normal appendix. Intraperitoneal space: Unremarkable. No free air. No significant fluid collection. Vasculature: Mild atherosclerotic disease without aortic aneurysm or dissection. Lymph nodes: Unremarkable. No enlarged lymph nodes. Urinary bladder: Unremarkable as visualized. Reproductive: Unremarkable as visualized. Bones/joints: Degenerative changes in the spine. No acute fracture. Soft tissues: Unremarkable. IMPRESSION: No acute findings. Dictated and Authenticated by: Fiona Graham MD. Ordering:QIAN Shahid MD
[2021-08-08 01:47] LABS: Bilirubin Negative (Negative); Blood Small (Negative); Clarity Clear (Clear); Glucose Negative (Negative); Ketones Negative (Negative); Leukocyte Esterase Negative (Negative); Nitrite Negative (Negative); Specific Gravity >= 1.030 (1.005-1.025); Urobilinogen 0.2 EU/dL (Up TO 0.2); pH 5.5 (5-8)
[2021-08-08 01:56] LABS: Bacteria Rare HPF (Negative); C & S Indicated? No; Casts 3-5 Hyaline LPF (Negative); Crystals Negative HPF (Negative); Epithelial Cells Few HPF (Negative); Mucus Negative (Negative); WBC 0-2 HPF (0-5)
[2021-08-08 01:57] LABS: *AMPHETAMINES SCREEN URINE Negative (Negative); *BARBITURATES SCREEN URINE Negative (Negative); *BENZODIAZEPINES SCREEN URINE Negative (Negative); Cannabinoids THC Negative (Negative); Cocaine Screen,Urine Negative (Negative); METHADONE URINE SCREEN Negative (Negative); OPIATES URINE SCREEN Negative (Negative)
[2021-08-08 01:58] LABS: Tricyclic Antidepressants Negative (Negative)
--- NOTE | 2021-08-08 02:30 | DI.CT_ITS ---
Exam(s) CT THORACIC LUMBAR SPINE REC EXAM: CT THORACIC LUMBAR SPINE REC CLINICAL HISTORY[place] [facility] [place] COMPARISON: No exams were available for comparison FINDINGS: THORACIC SPINAL COLUMN: There slight indentation of the superior endplate of T1 but without obvious f racture lines. No scoliosis evident in the thoracic spinal column. LUMBOSACRAL SPINAL COLUMN: No fractures nor listhesis. No facet malalignment. IMPRESSION: Mild indentation of superior endplate of T1 without obvious distinct fracture lines. Correlation wit h site of tenderness is recommended. No other osseous findings in the thoracic and lumbar spines.
== END 2021-08-08 02:48 | disposition short-term general hospital (02) ==
LOC: ER 08-08 02:57
PROVIDERS: Emergency Provider Student in an Organized Health Care Education/Training Program; PCP Family Medicine
DX: S12.120A Other displaced dens fracture, initial encounter for closed fracture (principal); S00.83XA Contusion of other part of head, initial encounter; S02.40CA Maxillary fracture, right side, initial encounter for closed fracture; W19.XXXA Unspecified fall, initial encounter; F10.188 Alcohol abuse with other alcohol-induced disorder; Y90.7 Blood alcohol level of 200-239 mg/100 ml; R11.2 Nausea with vomiting, unspecified; Z79.01 Long term (current) use of anticoagulants; Z20.822 Contact with and (suspected) exposure to COVID-19; Z03.818 Encounter for observation for suspected exposure to other biological agents ruled out
CPT/HCPCS: 36415; 51701; 74177; 80053; 80307; 82805; 83690; 87635; 93005; 96360; 96361; 99285; 70450; 70486; 71260; 72125; 80320; 81003; 81015; 82140; 84484; 85025; 85610; 85730; 93010; J3490

== ENCOUNTER 2022-01-29 02:32 | Outpatient (CLI) | payer OTHER, SELFPAY ==
--- NOTE | 2022-01-29 12:41 | DI.MAMMO_ITS ---
Exam(s) MAMMO SCREENING EXAM: MAMMO SCREENING CLINICAL HISTORY: SCREENING, Z12.39 TECHNIQUE: Bilateral full field digital CC and MLO mammographic images were obtained with 3D tomosyn thesis and utilizing computer aided detection (CAD). COMPARISON: Available for comparison. FINDINGS: Masses/Architectural Distortion: None seen. The patient is status post left breast biopsy. Microcalcifications: No suspicious pleomorphic-type are seen. Skin Thickening/Nipple Retraction: None. IMPRESSION: 1. No significant interval change with no specific features of malignancy noted. 2. Unless there is more urgent need, screening mammography is recommended, as per [employer] guidelines. BI-RADS Category 2 - Benign Findings Breast Density - Category B - Scattered areas of fibroglandular density Breast density category C or D implies that the patient has dense breast tissue. Dense breast tissue is very common and is not abnormal but dense breast tissue can make it harder to find cancer on a ma mmogram. Also, dense breast tissue may increase their breast cancer risk. This information about the result of the mammogram report was provided to the patient to raise their awareness. Use this report when you speak with the patient about their risks for breast cancer, which includes their family hist ory. At that time, you may recommend for more screening tests (Ultrasound or MRI) as they might be us eful based on their risk. A negative radiographic report should not delay biopsy if a dominant or clinically suspicious mass is present. Up to ten percent of cancers are not identified on mammography. A negative report may reinforce clinical impression. Adenosis and dense breasts may obscure an underlying neoplasm. False positive reports average 6 to 10%. Patient will receive a letter notifying them of these results.
--- NOTE | 2022-01-29 13:00 | DI.US_ITS ---
Exam(s) US THYROID EXAM: US THYROID CLINICAL HISTORY: SOLITARY THYROID NODULE, E04.1. TECHNIQUE: Ultrasound thyroid performed using standard protocol. COMPARISON: No exams were available for comparison FINDINGS: ISTHMUS: 2.4 mm RIGHT LOBE: Size: 2.1 AP by 2.7 cm transverse by 5.2 cm craniocaudad cm Echogenicity: Normal. Vascularity: Normal. Nodules: There is a 1.9 AP by 1.9 transverse by 2.6 craniocaudad solid isoechoic mass in the right lo be of the thyroid gland. It is not taller than wide. It has smooth margins. There are punctate ech ogenic foci present. This corresponds to a TI-RADS level 4 nodule. Due to its size, FNA is recommen ded. There is a 1 x 0.8 x 0.9 cm mixed cystic and solid nodule hypoechoic nodule in the inferior socorro e of the right lobe of the thyroid gland. It is not taller than wide. There are no echogenic foci i n the margins are smooth. This correspond to a TI-RADS level 3 nodule. No follow-up is recommended. LEFT LOBE: Size: 1.0 AP by 1.5 transverse by 4.4 craniocaudad cm Echogenicity: Normal. Vascularity: Normal. Nodules: No suspicious nodules are present. OTHER FINDINGS: None. IMPRESSION: Thyroid nodules as described above. 2.6 cm right thyroid nodule. FNA is recommended. DATA REPOSITORY:
== END 2022-01-29 02:52 ==
PROVIDERS: PCP Family Medicine; Visit Provider Family Medicine
DX: E04.1 Nontoxic single thyroid nodule (principal); E07.89 Other specified disorders of thyroid; Z12.31 Encounter for screening mammogram for malignant neoplasm of breast; Z98.890 Other specified postprocedural states
CPT/HCPCS: 77063; 77067; 76536

== ENCOUNTER 2022-02-05 03:12 | Outpatient (CLI) | payer OTHER, SELFPAY ==
[2022-02-05 17:20] LABS: TSH (W/Ref FT4) 0.27 uIU/mL (0.36-3.74)
[2022-02-05 17:43] LABS: FREE T4 0.83 ng/dL (0.76-1.46)
== END 2022-02-05 03:13 | disposition home or self-care (01) ==
LOC: LBO 03:12
PROVIDERS: PCP Family Medicine; Visit Provider Otolaryngology
DX: E04.2 Nontoxic multinodular goiter (principal)
CPT/HCPCS: 36415; 84439; 84443

== ENCOUNTER → 2022-03-07 00:35 | Outpatient (CLI) | payer OTHER, SELFPAY ==
--- NOTE | 2022-03-07 08:15 | DI.US_ITS ---
Exam(s) US NEEDLE LOCAL OTHER WO RAD EXAM: US NEEDLE LOCAL OTHER WO RAD CLINICAL HISTORY: t4 right thyroid nodule,e04.2,ultrasound guided bx TECHNIQUE: Ultrasound performed using standard protocol. COMPARISON: US US THYROID from 01/29/2022 FINDINGS: Ultrasound guidance was utilized by Dr. Jaxon Castillo during biopsy of reported right thyroid nodule. Please see Dr. Castillo's procedure note. IMPRESSION: DATA REPOSITORY:
--- NOTE | 2022-03-07 13:45 | PAPNONF_PTH ---
PATIENT: Fany Bowens LOC: [facility] U#:[id number] AGE/SX: 64/F ROOM: RE03/07/[address]: Jaxon Castillo MD : [id number] BED: DIS: SPEC #: [id number] RECD: 03/07/22 18:35 STATUS: PIERCE MAX #: [id number] MARTHA: 03/07/22 13:[address]: Jaxon Castillo DEPT: [facility] Cytology RECD BY: Ariane Delgado ENTERED: 03/07/22 18:35 SP TYPE: TALIB CARPENTER DR: Kati Massey Tissues: 1 - BODY FLUID CYTO-FINE NEEDLE ASPIRATE-[facility] Procedures: BODY FLUID CYTO-FINE NEEDLE ASPIRATE-[facility] Comments: [id number]
--- NOTE | 2022-03-07 14:19 | W.PROCNOTE ---
Procedure Note Date of procedure: 03/07/22 Procedure: Ultrasound guided FNA, right thyroid nodule, pathology available Surgeon/Proceduralist/Physician: Jaxon Castillo Procedure Indications: Patient with a right-sided thyroid nodule meeting criteria for biopsy. Options were explained to the patient regarding further management. She elected undergo the above procedure. Consent was filled out and signed prior to the procedure Procedure Description: The patient was positioned in a supine position and prepped and draped in appropriate fashion. Ultrasound probe was used to identify the right-sided thyroid nodule in question, and then 1% lidocaine with 1/100,000 epinephrine was injected into the skin and subcutaneous tissues medial to the thyroid nodule. A 25-gauge 1.5 inch needle was then used under direct guidance using the ultrasound to directly biopsy the nodule. Multiple passes were made. After ensuring cellular adequacy, 2 passes were made for potential Afirma. There was no significant bleeding. The patient tolerated the procedure well. Her vital signs remained stable. Sterile dressing was applied and the patient was able to ambulate afterwards without difficulty. She will call if she does not hear from me within 1 week with regard to the pathology results. She will call with any signs of infection. She will remove the bandage tonight and not replace them. She will restart her Eliquis tonight. She will avoid anything strenuous for the next 24 hours.
== END ==
PROVIDERS: PCP Family Medicine; Visit Provider Otolaryngology
DX: E04.2 Nontoxic multinodular goiter (principal)
CPT/HCPCS: 76942; 88104

== ENCOUNTER 2022-07-15 16:47 | Outpatient (REF) | payer OTHER, SELFPAY ==
[2022-07-15 20:48] LABS: Anion Gap 9.6 mmol/L (3-11); BUN 26 mg/dL (7-18); CO2 28.4 mmol/L (21.0-32.0); CREATININE 0.9 mg/dL (0.55-1.02); Calcium 9.6 mg/dL (8.5-10.1); Chloride 105 mmol/L (98-107); Estimated GFR 72.73 (mL/min/1.73m2); Glucose 108 mg/dL (74-106); Potassium 4.4 mmol/L (3.5-5.1); Sodium 143 mmol/L (136-145); TSH (W/Ref FT4) 0.56 uIU/mL (0.36-3.74)
[2022-07-17 09:35] LABS: HIV-1/2 Ag & Ab Screen Negative (Negative)
[2022-07-17 09:54] LABS: Hepatitis C Ab w Rflx HCV PCR Negative (Negative)
== END 2022-07-15 16:48 | disposition home or self-care (01) ==
LOC: NCHCN 16:47
PROVIDERS: PCP Family Medicine; Visit Provider Family Medicine
DX: I10 Essential (primary) hypertension (principal); E04.1 Nontoxic single thyroid nodule; Z11.4 Encounter for screening for human immunodeficiency virus [HIV]; Z11.59 Encounter for screening for other viral diseases
CPT/HCPCS: 80048; 86803; 87389; 84443

== ENCOUNTER 2023-06-02 13:15 | Emergency (ER) | payer OTHER, SELFPAY ==
[2023-06-02 13:28] VITALS: BP 145/81; PULSE 107; RESP 18; TEMP 36.8; O2SAT 99
--- NOTE | 2023-06-02 15:00 | DI.CT_ITS ---
Exam(s) CT ABDOMEN PELVIS WO EXAM: CT ABDOMEN PELVIS WO CLINICAL HISTORY: rt abd pain and rt flank pain. TECHNIQUE: Imaging Protocol: Axial computed tomography images with coronal and sagittal reformatted images were created and reviewed. COMPARISON: CT CT THORACIC LUMBAR SPINE REC from 08/08/[address] CHEST/ABD/PEL W from 08/08/2021 FINDINGS: ABDOMEN: Lung Bases: There is a stable small pericardial effusion. Liver: Normal density. There are 3 stable simple cysts in the liver. No follow-up is recommended. Gallbladder and biliary tract: Status post cholecystectomy. No significant biliary ductal dilatation . There has been no change in the appearance of the bile ducts. Pancreas: Normal density, no abnormal calcifications or inflammatory process. Spleen: No suspicious lesions. Kidneys: Normal size, contour and axis.No radiodense stones or obstructive uropathy. Left parapelvic cysts. No follow-up is recommended. Adrenal glands: No mass is seen. Lymph nodes: Within normal limits. Abdominal Aorta: Abdominal portion non-dilated. Atherosclerosis. PELVIS: Bladder:Symmetric distention, no gross wall thickening. Bowel: No obstruction or bowel wall thickening. Appendix is unremarkable. Peritoneal cavity: No ascites, collection or mesenteric inflammatory response. No free air. Reproductive organs: Unremarkable as visualized. Bones: Within normal limits. Soft Tissues: Within normal limits. IMPRESSION: 1. No acute abdominal pelvic process. 2. No evidence of nephrolithiasis or hydronephrosis. 3. Status post cholecystectomy. 4. Normal appendix. 5. Findings were discussed with the emergency department at 5:17 p.m. on 06/02/2023. RADIATION DOSE DELIVERED: 1,015.8mGy.cm Total DLP DATA REPOSITORY: All CT scans at this facility are submitted to the National Radiology Data Registry (NRDR) Dose Index Registry (DIR) with the [employer] (ACR). RADIATION OPTIMIZATION: All CT scans at this facility use at least one of these dose optimization te chniques: automated exposure control; mA and/or kV adjustment per patient size (includes targeted exa ms where dose is matched to clinical indication); or iterative reconstruction.
[2023-06-02 15:06] LABS: Bilirubin Negative (Negative); Blood Trace-lysed (Negative); Clarity Clear (Clear); Glucose Negative (Negative); Ketones Negative (Negative); Leukocyte Esterase Negative (Negative); Nitrite Negative (Negative); Urobilinogen 0.2 mg/dL (Up to 0.2); pH 5.5 (5-8)
[2023-06-02 15:14] LABS: Bacteria Rare HPF (Negative); C & S Indicated? No; Casts Negative LPF (Negative); Crystals Negative HPF (Negative); Epithelial Cells Rare HPF (Negative); Mucus Trace (Negative); RBC 0-2 HPF (0-2); WBC 0-2 HPF (0-5)
[2023-06-02 15:16] LABS: Abs Immature Grans 0.02 10^3/uL (0.0-0.06); Absolute Basophil Count 0.09 10^3/uL (0.0-0.2); Absolute Eosinophil Count 0.16 10^3/uL (0.0-0.7); Absolute Lymphocyte Count 1.89 10^3/uL (1.2-3.4); Absolute Monocyte Count 0.62 10^3/uL (0.1-0.8); Absolute Neutrophil Count 4.35 10^3/uL (1.2-6.7); Basophils % 1.3; Eosinophils % 2.2; HGB 13.8 g/dL (11.2-15.7); Immature Grans % 0.3; Lymphocytes % 26.5; MCH 30.3 pg (27.0-33.0); MCHC 33.7 % (32.0-36.0); MCV 90 fL (80-95); MPV 9.3 fL (8.0-11.0); Monocytes % 8.7; Platelet Count 278 10^3/uL (130-400); RBC 4.55 10^6/uL (3.93-5.22); RDW 12.2 % (11.7-14.6); RDW-SD 39.9 fL; WBC 7.13 10^3/uL (4.4-10.8)
[2023-06-02 15:27] LABS: ALT 15 U/L (14-59); AST 14 U/L (15-37); Albumin 4.1 g/dL (3.4-5.0); Alkaline Phosphatase 105 U/L (46-116); Anion Gap 8.6 mmol/L (3-11); BUN 10 mg/dL (7-18); Bilirubin, Total 0.3 mg/dL (0.2-1.0); CO2 27.4 mmol/L (21.0-32.0); CREATININE 0.8 mg/dL (0.55-1.02); Calcium 9.4 mg/dL (8.5-10.1); Chloride 105 mmol/L (98-107); Estimated GFR 83.26 (mL/min/1.73m2); Glucose 103 mg/dL (74-106); Lipase 40 U/L (16-77); Magnesium 2.1 mg/dL (1.8-2.4); Potassium 3.8 mmol/L (3.5-5.1); Sodium 141 mmol/L (136-145); Total Protein 7.7 g/dL (6.4-8.2)
--- NOTE | 2023-06-02 15:48 | W.ED.GENAD ---
Discharge Plan Discharge Details Chief Complaint: Abd Prob Primary Care Provider: Kati Massey ED Provider: Oliver Grimes Home Meds and New Rx's Prescriptions: No Action Eliquis 2.5 mg tablet 2.5 mg PO BID losartan 50 mg tablet 50 mg PO DAILY paroxetine HCl 20 mg tablet 20 mg PO DAILY acetaminophen [Tylenol Extra Strength] 500 mg tablet 1,000 mg PO TID multivitamin Tablet 1 tab PO DAILY magnesium oxide 500 mg tablet 500 mg PO DAILY ibuprofen 200 mg tablet 200 mg PO DIRECTED PRN acetaminophen [Tylenol] 325 MG tablet 650 mg PO Q4H PRN PRNQty: 30 0RF Medical Decision Making 1545??62-year-old female status post remote cholecystectomy here with 11 days of right-sided flank pain and right abdominal pain. Patient is normotensive but tachycardic. She is uncomfortable. Patient is afebrile. Patient does have tenderness in her right abdomen. No focal right lower quadrant tenderness. Patient also with right CVA tenderness. I am concerned about renal stone versus pyelonephritis versus less likely appendicitis. Plan to obtain CT of the abdomen pelvis to assess for acute surgical pathology. I will give Toradol 30 mg IV. Initial labs reviewed and no leukocytosis. LFTs normal. Lipase normal. Urinalysis reviewed and trace blood. Lab Data Lab results reviewed: Yes I reviewed the patient's lab results. Labs: Laboratory Tests Range/Units 06/02/23 06/02/23 06/02/23 14:55 15:00 15:00 WBC (4.4-10.8) 10^3/uL 7.13 RBC (3.93-5.22) 10^6/uL 4.55 Hgb (11.2-15.7) g/dL 13.8 Hct (36.0-46.0) % 41.0 MCV (80-95) fL 90 MCH (27.0-33.0) pg 30.3 MCHC (32.0-36.0) % 33.7 RDW (11.7-14.6) % 12.2 Plt Count (130-400) 10^3/uL 278 MPV (8.0-11.0) fL 9.3 Immature Gran % 0.3 Neutrophils % 61.0 Lymphocytes % 26.5 Monocytes % 8.7 Eosinophils % 2.2 Basophils % 1.3 Nucleated RBC % (0.0-0.3) % 0.0 Absolute Neutrophils (1.2-6.7) 10^3/uL 4.35 Absolute Lymphocytes (1.2-3.4) 10^3/uL 1.89 Absolute Monocytes (0.1-0.8) 10^3/uL 0.62 Absolute Eosinophils (0.0-0.7) 10^3/uL 0.16 Absolute Basophils (0.0-0.2) 10^3/uL 0.09 Sodium (136-145) mmol/L 141 Potassium (3.5-5.1) mmol/L 3.8 Chloride (98-107) mmol/L 105 Carbon Dioxide (21.0-32.0) mmol/L 27.4 Anion Gap (3-11) mmol/L 8.6 BUN (7-18) mg/dL 10 Creatinine (0.55-1.02) mg/dL 0.8 Est GFR (CKD-EPI 2020) (mL/min/1.73m2) 83.26 Glucose (74-106) mg/dL 103 Calcium (8.5-10.1) mg/dL 9.4 Magnesium (1.8-2.4) mg/dL 2.1 Total Bilirubin (0.2-1.0) mg/dL 0.3 AST (15-37) U/L 14 L ALT (14-59) U/L 15 Alkaline Phosphatase (46-116) U/L 105 Total Protein (6.4-8.2) g/dL 7.7 Albumin (3.4-5.0) g/dL 4.1 Lipase (16-77) U/L 40 Urine Color (Yellow) Yellow Urine Clarity (Clear) Clear Urine pH (5-8) 5.5 Ur Specific Franklin (1.005-1.025) 1.010 Urine Protein (Negative) mg/dL Negative Urine Ketones (Negative) mg/dL Negative Urine Blood (Negative) Trace-lysed H Urine Nitrite (Negative) Negative Urine Bilirubin (Negative) Negative Urine Urobilinogen (Up to 0.2) mg/dL 0.2 Ur Leukocyte Esterase (Negative) Negative Urine RBC (0-2) HPF 0-2 Urine WBC (0-5) HPF 0-2 Ur Epithelial Cells (Negative) HPF Rare Urine Crystals (Negative) HPF Negative Urine Bacteria (Negative) HPF Rare Urine Casts (Negative) LPF Negative Urine Mucus (Negative) Trace Ur Culture Indicated? No Urine Glucose (Negative) mg/dL Negative HPI General Mode of arrival: ambulatory. Date/Time Provider Initiated Documentation: 06/02/23 13:36. Limitations to Documentation: no limitations. Information obtained by: patient. HPI Narrative: 62-year-old female presents with chief complaint of flank pain. Patient notes over the past 10 days she has had right-sided flank pain. She states pain is in her right sided abdomen and then radiates to her flank and back. Pain is severe and persistent. She has not taken any analgesics. No associated fever. She has had some associated nausea. No vomiting. No loose stool, melena or bright red blood per rectum. No urinary symptoms. Related Data Home Medications Medication Instructions Recorded Confirmed acetaminophen 325 mg tablet 650 mg PO Q4H PRN PRN #30 tabs 11/06/17 06/02/23 (Tylenol) acetaminophen 500 mg tablet 1,000 mg PO TID 11/23/21 06/02/23 (Tylenol Extra Strength) apixaban 2.5 mg tablet (Eliquis) 2.5 mg PO BID 11/23/21 06/02/23 ibuprofen 200 mg tablet 200 mg PO DIRECTED PRN 11/23/21 06/02/23 losartan 50 mg tablet 50 mg PO DAILY 11/23/21 06/02/23 magnesium oxide 500 mg tablet 500 mg PO DAILY 11/23/21 06/02/23 multivitamin 1 tab PO DAILY 11/23/21 06/02/23 paroxetine HCl 20 mg tablet 20 mg PO DAILY 11/23/21 06/02/23 Previous Rx's Medication Instructions Recorded acetaminophen 325 mg tablet 650 mg PO Q4H PRN PRN #30 tabs 11/06/17 (Tylenol) Allergies Allergy/AdvReac Type Severity Reaction Status Date / Time codeine AdvReac Intermediate Nausea Unverified 06/02/23 13:31 morphine AdvReac Intermediate Nausea Unverified 06/02/23 13:31 General Stated Complaint: Abd Prob CRISTAL: 3 Review of Systems All systems reviewed & are unremarkable except as noted in HPI and below Constitutional Constitutional: Denies fever(s) Gastrointestinal Gastrointestinal: Reports as per HPI PFSH All Active Problems Subclinical hypothyroidism (Acute) Multinodular thyroid (Acute) Perimenopausal (Acute) Restless leg syndrome (Acute) Epidermal cyst (Acute) Edema of both legs (Acute) Solitary thyroid nodule (Acute) Facial pain, atypical (Acute) Closed type III fracture of odontoid process (Acute) Elevated ETOH level (Acute) Fall (Acute) Contusion of face (Acute) Medical History Cholelithiasis colon polyp History of deep venous thrombosis (DVT) of distal vein of left lower extremity Lifetime 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[employer] Hx of adenomatous colonic polyps Hypertension Libido, decreased Obesity Surgical History Biopsy of breast (~2001) Cholecystectomy (11/06/17) Colonoscopy - IV Sedation Colonoscopy - MAC (11/03/17) History of wisdom tooth extraction Family History Father Personal history of malignant neoplasm Throat cancer Depression Alcohol use disorder Hypertension Social History Smoking/Tobacco Use Status: Never Smoking risk assessment performed?: Yes Alcohol Intake: current Alcohol Intake frequency: holidays/special occasions only Drug use: Never Substance use type: does not use Housing: house Pets and animals: Yes Pets and animals: dog(s) Do you feel safe at home: Yes Do you feel safe in your relationship?: Yes Exam Const General: cooperative and no acute distress HENMT Mouth: moist mucous membranes Eyes Conjunctivae: normal conjunctivae Sclera: normal sclerae Resp Auscultation: clear to auscultation bilaterally, no rales, no rhonchi and no wheezes Cardio Rate: regular rate and not tachycardic Rhythm: regular rhythm GI Palpation: soft, not firm, no guarding, no masses, not rigid and tender (Right mid abdomen) Auscultation: normal bowel sounds Back/Spine/Pelvis Back: CVA tenderness (rt) Other: No rash Skin General skin exam: no rashes or lesions noted Neuro General: patient alert, patient awake and tone normal Extrem General: no edema Psych Appearance: grossly normal Mental Status: mental status grossly normal Course Vital Signs Vital signs: Vital Signs Temperature 36.8 C 06/02/23 13:28 Pulse 107 H 06/02/23 13:28 Respiratory Rate 18 06/02/23 13:28 Blood Pressure 145/81 H 06/02/23 13:28 Pulse Oximetry 99 06/02/23 13:28 Temperature 36.8 C 06/02/23 13:28 Temperature Source Temporal Artery Scan 06/02/23 13:28 Pulse 107 H 06/02/23 13:28 Respiratory Rate 18 06/02/23 13:28 Respiratory Effort Normal 06/02/23 13:30 Blood Pressure 145/81 H 06/02/23 13:28 Blood Pressure Position Sitting 06/02/23 13:28 Pulse Oximetry 99 06/02/23 13:28 Oxygen Delivery Method Room Air 06/02/23 13:28 Oxygen Flow Rate 0 06/02/23 13:28 Pain Level 7 06/02/23 13:28 Lab/Test Results Lab/Test Results: Laboratory Tests Range/Units 06/02/23 06/02/23 06/02/23 14:55 15:00 15:00 WBC (4.4-10.8) 10^3/uL 7.13 RBC (3.93-5.22) 10^6/uL 4.55 Hgb (11.2-15.7) g/dL 13.8 Hct (36.0-46.0) % 41.0 MCV (80-95) fL 90 MCH (27.0-33.0) pg 30.3 MCHC (32.0-36.0) % 33.7 RDW (11.7-14.6) % 12.2 Plt Count (130-400) 10^3/uL 278 MPV (8.0-11.0) fL 9.3 Immature Gran % 0.3 Neutrophils % 61.0 Lymphocytes % 26.5 Monocytes % 8.7 Eosinophils % 2.2 Basophils % 1.3 Nucleated RBC % (0.0-0.3) % 0.0 Absolute Neutrophils (1.2-6.7) 10^3/uL 4.35 Absolute Lymphocytes (1.2-3.4) 10^3/uL 1.89 Absolute Monocytes (0.1-0.8) 10^3/uL 0.62 Absolute Eosinophils (0.0-0.7) 10^3/uL 0.16 Absolute Basophils (0.0-0.2) 10^3/uL 0.09 Sodium (136-145) mmol/L 141 Potassium (3.5-5.1) mmol/L 3.8 Chloride (98-107) mmol/L 105 Carbon Dioxide (21.0-32.0) mmol/L 27.4 Anion Gap (3-11) mmol/L 8.6 BUN (7-18) mg/dL 10 Creatinine (0.55-1.02) mg/dL 0.8 Est GFR (CKD-EPI 2020) (mL/min/1.73m2) 83.26 Glucose (74-106) mg/dL 103 Calcium (8.5-10.1) mg/dL 9.4 Magnesium (1.8-2.4) mg/dL 2.1 Total Bilirubin (0.2-1.0) mg/dL 0.3 AST (15-37) U/L 14 L ALT (14-59) U/L 15 Alkaline Phosphatase (46-116) U/L 105 Total Protein (6.4-8.2) g/dL 7.7 Albumin (3.4-5.0) g/dL 4.1 Lipase (16-77) U/L 40 Urine Color (Yellow) Yellow Urine Clarity (Clear) Clear Urine pH (5-8) 5.5 Ur Specific Franklin (1.005-1.025) 1.010 Urine Protein (Negative) mg/dL Negative Urine Ketones (Negative) mg/dL Negative Urine Blood (Negative) Trace-lysed H Urine Nitrite (Negative) Negative Urine Bilirubin (Negative) Negative Urine Urobilinogen (Up to 0.2) mg/dL 0.2 Ur Leukocyte Esterase (Negative) Negative Urine RBC (0-2) HPF 0-2 Urine WBC (0-5) HPF 0-2 Ur Epithelial Cells (Negative) HPF Rare Urine Crystals (Negative) HPF Negative Urine Bacteria (Negative) HPF Rare Urine Casts (Negative) LPF Negative Urine Mucus (Negative) Trace Ur Culture Indicated? No Urine Glucose (Negative) mg/dL Negative PAWSS Have you Been Recently Intoxicated or Drunk Within the Last 30 days?: No Have you Ever Experienced Previous Episodes of Alcohol Withdrawal?: No Have you ever Experienced Withdrawal Seizures?: No Have you ever Experienced Delirium Tremens(DT)s?: No Have you ever undergone Alcohol Rehabilitation Treatment (i.e, inpt ot outpatient treatment programs)?: No Have you ever Experienced Blackouts?: No Have you ever Combined Alcohol with other Downers within the last 90 days?: No Have you ever Combined Alcohol with any other Substance of Abuse during the last 90 days?: No Result: 0
[2023-06-02] MEDS: Ketorolac 30 MG/ML VIAL IVP (15:57)
--- NOTE | 2023-06-02 17:27 | W.EDPROG ---
Date of service: 06/02/23 Time of Service: 17:27 Medical Decision Making Patient was signed out to me by my colleague Dr. Oliver Grimes. Please refer to his HPI, physical exam, assessment and plan. At time of signout we are awaiting CT scan results. CT scan results have returned, no evidence of kidney stone or acute process in the abdomen per radiology. Patient has resolution of her pain after NSAID therapy here in the ED. No evidence of UTI, white count, bandemia or left shift. No evidence of other concerning etiology. Patient feels well and would like to go home. Patient will be discharged home. Suspect potential for passed kidney stone, psoas spasm, or potentially constipation. Patient does admit to constipation, we will give Colace. Discussed red flags for which to return. I have extensively reviewed the treatment plan and discharge instructions with the patient. I have addressed all patient concerns at this time. The patient was made aware of what symptoms to monitor for that would warrant a return to the emergency department. Discussed the plan with the patient, they demonstrate verbal understanding and agreement with our assessment and plan at this time. The documentation in this chart was dictated using [employer] dictation software. Please excuse any dictation errors. FINDINGS: ABDOMEN: Lung Bases: There is a stable small pericardial effusion. Liver: Normal density. There are 3 stable simple cysts in the liver. No follow-up is recommended. Gallbladder and biliary tract: Status post cholecystectomy. No significant biliary ductal dilatation. There has been no change in the appearance of the bile ducts. Pancreas: Normal density, no abnormal calcifications or inflammatory process. Spleen: No suspicious lesions. Kidneys: Normal size, contour and axis.No radiodense stones or obstructive uropathy. Left parapelvic cysts. No follow-up is recommended. Adrenal glands: No mass is seen. Lymph nodes: Within normal limits. Abdominal Aorta: Abdominal portion non-dilated. Atherosclerosis. PELVIS: Bladder:Symmetric distention, no gross wall thickening. Bowel: No obstruction or bowel wall thickening. Appendix is unremarkable. Peritoneal cavity: No ascites, collection or mesenteric inflammatory response. No free air. Reproductive organs: Unremarkable as visualized. Bones: Within normal limits. Soft Tissues: Within normal limits. IMPRESSION: 1. No acute abdominal pelvic process. 2. No evidence of nephrolithiasis or hydronephrosis. 3. Status post cholecystectomy. 4. Normal appendix. 5. Findings were discussed with the emergency department at 5:17 p.m. on 06/02/2023. Sign Out Sign Out Data: Sign Out Comment: Plan to follow-up ct and labs. Patient has received Toradol 30 mg IV. Reassess patient for disposition. Last updated by Oliver Grimes MD at 06/02/23 15:53 Discharge Plan Disposition Patient Disposition: Home Discharge Details Clinical Impression: Right flank pain, Constipation Primary Care Provider: Kati Massey ED Provider: Oliver Grimes Home Meds and New Rx's Prescriptions: New docusate sodium [Colace] 100 mg capsule 100 mg PO BID Qty: 20 0RF No Action Eliquis 2.5 mg tablet 2.5 mg PO BID losartan 50 mg tablet 50 mg PO DAILY paroxetine HCl 20 mg tablet 20 mg PO DAILY acetaminophen [Tylenol Extra Strength] 500 mg tablet 1,000 mg PO TID multivitamin Tablet 1 tab PO DAILY magnesium oxide 500 mg tablet 500 mg PO DAILY ibuprofen 200 mg tablet 200 mg PO DIRECTED PRN acetaminophen [Tylenol] 325 MG tablet 650 mg PO Q4H PRN PRNQty: 30 0RF Discharge Instructions Instructions: Constipation (ED), Flank Pain (ED) Additional Instructions: At this time your laboratory work-up and CAT scan show no evidence of significant abnormality. Your pain may be secondary to a passed kidney stone, a muscle spasm of your psoas muscle, or potentially constipation. Please take Tylenol and Motrin as needed for pain. Please take Colace to help with your stools to keep them soft. Make sure to drink 3 to 4 cups of water every time you take one of the Colace pills. If you notice any worsening of your symptoms, or any new symptoms such as vomiting, diarrhea, fever, chills, shortness of breath, chest pain, numbness, weakness, or fainting , please return immediately to the emergency department for reevaluation. Please follow up with your primary care provider as soon as possible for reassessment and reevaluation. As always, it was a pleasure participating in your medical care today. Referrals: Kati Massey MD [Primary Care Provider] -
== END 2023-06-02 17:48 | disposition home or self-care (01) ==
PROVIDERS: Emergency Provider Student in an Organized Health Care Education/Training Program; PCP Family Medicine
DX: K59.00 Constipation, unspecified (principal); R10.9 Unspecified abdominal pain
CPT/HCPCS: 80053; 83690; 96374; 99284; 74176; 81003; 81015; 83735; 85025; J1885

== ENCOUNTER 2023-07-14 09:40 | Day surgery (SDC) | payer OTHER, SELFPAY ==
--- NOTE | 2023-07-13 19:26 | W.PM.DSUDISC ---
Date of service: 07/14/23 Time of Service: 11:27 Discharge Plan Disposition Patient Disposition: Home Condition: Good Discharge Details Reason For Visit: Screening colonoscopy Attending Provider: Jaxon Zamorano Primary Care Provider: Kati Massey Home Meds and New Rx's Prescriptions: Continued losartan 50 mg tablet 50 mg PO DAILY multivitamin Tablet 1 tab PO DAILY magnesium oxide 500 mg tablet 500 mg PO DAILY Patient Comments: more of a winter supplement ibuprofen 200 mg tablet 200 mg PO DIRECTED PRN acetaminophen [Tylenol] 325 MG tablet 650 mg PO Q4H PRN PRNQty: 30 0RF docusate sodium [Colace] 100 mg capsule 100 mg PO BID Qty: 20 0RF Held Eliquis 2.5 mg tablet 2.5 mg PO BID Hold Instructions: Resume on 07/15/23. Discontinued bisacodyl [Dulcolax (bisacodyl)] 5 mg tablet,delayed release (DR/EC) 5 mg PO ONCE Qty: 4 0RF Rx Instructions: Take per colonoscopy instructions provided by ordering providers office polyethylene glycol 3350 17 gram/dose powder 17 g PO ONCE Qty: 238 0RF Rx Instructions: Take per colonoscopy instructions provided by ordering providers office Discharge Instructions Instructions: Diverticulosis (GEN), Diverticulosis Diet (GEN), Colorectal Polyps (GEN) Additional Instructions: Page, we are able to do your colonoscopy today without any difficulty. Your prep was excellent. I did find 1 small polyp. I removed this and completely. Incidentally, he also have mild internal hemorrhoids, as well as diverticulosis. Diverticula are weak spots that occur in the colon wall. They can get infected, and this is typically experienced as sharp pain usually in the left lower abdomen with associated nausea and fevers. In severe cases, patients need to be treated with antibiotics. I will attach some general information here regarding diverticulosis, and its management. I have also supplied some information on colon and rectal polyps. I will be in touch when I get the results of the polyp report for my final recommendations on your next colonoscopy. In the meantime, please hold your Eliquis until tomorrow. You can restart it at your regular dosing at that point. 1. If tolerated, consume a soft, low fiber diet for 1-2 days. 2[address] Do not drive, drink alcohol, operate machinery, make critical decisions, or do activities that require coordination or balance for 24 hours. 3. Because air was put into your colon during the procedure, expelling air from your rectum (passing gas or farting) is normal. 4. You may not have a bowel movement for 1-3 days because of the colonoscopy prep. This is normal. 5. Go directly to the emergency room if you notice any of the following: Develop chills (warm to touch), or if you have a thermometer and your temperature is above 101 Difficulty breathing or difficultly swallowing Persistent vomiting Severe abdominal pain, other than gas cramps Severe chest pain Black, tarry stools Any bleeding ? exceeding one tablespoon 6. Call your physician if the site where your intravenous was started becomes red, swollen, painful, and warm to touch. 7. Your physician has reviewed your pre-procedure medications. Please continue to take those medications as previously ordered. You will be given specific information/education regarding any changes to your medications before leaving. Activity:: Activity as Tolerated Diet:: As Tolerated Discharge Orders Discharge Orders: Discharge Order (Routine); Ordered 07/13/23 Ordered By: Jaxon Zamorano DS: Diagnosis Discharge Diagnosis (1) Screen for colon cancer: Status: Acute Asessment and Plan: Follow-up on polypectomy results
--- NOTE | 2023-07-13 19:28 | COLE_ITS ---
Date of service: 07/14/23 Time of Service: 11:29 Colonoscopy Report Date of procedure: 07/14/23 Pre-op diagnosis general: Screening colonoscopy Post-op diagnosis procedure note: other (Internal hemorrhoids, diverticulosis, colon polyp) Procedure: Colonoscopy with polypectomy Surgeon: Jaxon Zamorano Anesthesia Type: General:No Airway Estimated blood loss (mL): 5 Pathology: other (0.25 cm colon polyp at 45 cm from the anus) Complications: None Disposition: same day Indications: Fany is a 62 year old woman with a history of sessile serrated adenoma. She needs another colonoscopy Prep: Miralax/Dulcolax Procedure Start Time: 11:01 Procedure End Time: 11:17 Retraction Time: 12 Findings: 0.25 cm polyp at 45 cm from the anus; internal hemorrhoids and diverticulosis Procedure Description: After the induction of monitored anesthetic care, and with the patient in left lateral decubitus position, I began by performing an external anorectal exam.? Perineum and skin were normal, as was the anal verge.? Next, I performed a digit al rectal exam.? I did not appreciate any abnormal findings.? Next, I advanced a colonoscope into the rectal vault.? I performed retroflexion.? There is grade 1 internal hemorrhoids.? Using insufflation, I then advanced the colonoscope beyond the rectal folds and into the sigmoid colon before advancing towards the cecum.? The quality of the prep was excellent.? There was some scattered sigmoid diverticulosis. The scope was noted to be in the cecum by identification of the ileocecal valve and appendiceal orifice.? I then began withdrawing the colonoscope using repeated irrigation as necessary for full evaluation of the colonic mucosa. Around 45 cm from the anal verge I identified a 0.25 cm polyp. ?It appeared sessile in character. ?I was able to remove this with a cold forcep polypectomy. ?I examined the site, and there was minimal bleeding. ?Once this was completed, I continued to withdraw the scope and examine the remainder of the colonic mucosa.?Once the scope was withdrawn to the level of the rectum, great care was taken to examine portions of the rectal folds.? Finally, the scope was withdrawn and the patient was brought to the same-day surgery recovery unit as the anesthetic wore off. ?The findings and instructions were shared with the patient prior to discharge.
[2023-07-14 10:16] VITALS: BP 135/79; PULSE 84; RESP 20; TEMP 36.6; O2SAT 99
[2023-07-14] MEDS: Lactated Ringers 1,000 ML 80 ML IV (10:40)
--- NOTE | 2023-07-14 10:46 | ANES.PREOP_ITS ---
General Info Date of Service Date Performed: 07/14/23 Height: 5 ft 4 in Weight: 78.4 kg Body Mass Index (BMI): 29.6 Surgical Procedure: Operation Date: 07/14/23 11:20 Proposed Procedure Side Surgeon sharmila Zamorano MD Meds Allergies and Home Medications Allergies Allergy/AdvReac Type Severity Reaction Status Date / Time codeine AdvReac Intermediate Nausea Unverified 07/14/23 10:16 morphine AdvReac Intermediate Nausea Unverified 07/14/23 10:16 Home Medication Medication Instructions Recorded acetaminophen 325 mg tablet 650 mg PO Q4H PRN PRN #30 tabs 11/06/17 (Tylenol) apixaban 2.5 mg tablet (Eliquis) 2.5 mg PO BID 11/23/21 ibuprofen 200 mg tablet 200 mg PO DIRECTED PRN 11/23/21 losartan 50 mg tablet 50 mg PO DAILY 11/23/21 magnesium oxide 500 mg tablet 500 mg PO DAILY 11/23/21 multivitamin 1 tab PO DAILY 11/23/21 docusate sodium 100 mg capsule 100 mg PO BID #20 caps 06/02/23 (Colace) Current Visit Medications: Current Medications Generic Name Dose Route Start Last Admin Trade Name Freq PRN Reason Stop Dose Admin Hyoscyamine Sulfate 0.125 mg 07/13/23 19:29 Hyoscyamine 0.125 Mg Sl/Oral/Chew SL 08/12/23 19:28 DIRECTED PRN Ringer's Solution 1,000 mls @ 80 mls/hr 07/14/23 06:00 07/14/23 10:40 IV 08/10/23 23:59 80 mls/hr INFUSION PIETRO Administration IV Miscellaneous Supplies 1 each 07/14/23 06:00 Iv Access IV 08/10/23 23:59 DIRECTED PIETRO Ondansetron HCl 4 mg 07/13/23 19:29 Ondansetron 4 Mg/2 Ml Vial IVP 08/12/23 19:28 Q4H PRN PRN Nausea / Vomiting Sodium Chloride 0 ml 07/14/23 06:00 Normal Saline Flush 10 Ml Syr IV 08/10/23 23:59 PRN PRN Sodium Chloride 0 ml 07/14/23 06:00 Normal Saline 10 Ml Vial IJ 08/10/23 23:59 DIRECTED PRN Sterile Water 0 ml 07/14/23 06:00 Water,Injection,Sterile 10 Ml Vial IJ 08/10/23 23:59 DIRECTED PRN PFSH Active Problems Active Problems: Problem Status Onset Code Screen for colon cancer Z12.11 Subclinical hypothyroidism E03.8 Multinodular thyroid E04.2 Perimenopausal N95.1 Restless leg syndrome G25.81 Epidermal cyst L72.0 Edema of both legs R60.0 Solitary thyroid nodule E04.1 Facial pain, atypical G50.1 Closed type III fracture of odontoid process S12.120A Elevated ETOH level R78.0 Fall W19.XXXA Contusion of face S00.83XA Medical History Medical History Cholelithiasis colon polyp History of deep venous thrombosis (DVT) of distal vein of left lower extremity Lifetime 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[employer] Hx of adenomatous colonic polyps Hypertension Libido, decreased Obesity Surgical History Surgical History Biopsy of breast (~2001) Cholecystectomy (11/06/17) Colonoscopy - IV Sedation Colonoscopy - MAC (11/03/17) History of wisdom tooth extraction Tobacco Smoking/Tobacco Use Status: Never Alcohol Alcohol Intake: current Alcohol intake frequency: holidays/special occasions only Substance Use Substance use: Never Substance use type: does not use Vital Signs and Lab Results Vital Signs Most Recent Vital Signs in EMR: Most Recent Vital Signs Temp Pulse Resp BP Pulse Ox 36.6 C 84 20 135/79 99 07/14/23 10:16 07/14/23 10:16 07/14/23 10:16 07/14/23 10:16 07/14/23 10:16 Lab Results Blood Type / Crossmatch: No Data to Display Complete Blood Count: No Data to Display Complete Metabolic Panel: No Data to Display Liver Function Panel: No Data to Display Coagulation Panel: No Data to Display Cardiac Panel: No Data to Display Arterial Blood Gas: No Data to Display Venous Blood Gas: No Data to Display Pancreas Panel: No Data to Display Thyroid Panel: No Data to Display Infectious Disease: No Data to Display Blood Cultures: No Data to Display Toxicology Panel: No Data to Display Anesthesia Assessment and Plan Anesthesia History Personal History: No History of Anesthesia Complications Family History: No Family History of Anesthesia Complications Exercise Tolerance Exercise Tolerance: Metabolic Equivalents>4 Pertinent Negatives Pertinent Negatives: No Major Cardiovascular Symptoms or Complaints, No Major Pulmonary Symptoms or Complaints and No History of CVA/TIA Cardiac & Pulmonary Exam Cardiac Exam: Normal S1/S2 Heart Sounds Pulmonary Exam: Clear Bilateral Breath Sounds Implantable Cardiac Device Does patient have a Pacemaker or an ICD?: No Airway Exam Known Difficult Airway: No Mallampati Class: 2 Mouth Opening: Normal (> 3cm) Thyromental Distance: Greater than 3 cm Neck Range of Motion: Full ROM Neck Circumference: Normal Teeth Condition: Removable Dentures/Plates Upper (partial) and Removable Dentures/Plates Lower (partial) ASA Classification ASA Score: ASA 2 Emergency Case?: No NPO Status NPO Status: NPO Clears >2 hours, Solids >8 hours Anesthesia Plan Resuscitation Status: Full Code Anesthesia Technique: General Anesthesia Airway Planned: Natural Airway Monitors Used: Standard Monitors Preoperative Comments:: Eliquis stopped 3 days ago.
[2023-07-14 10:50] VITALS: BMI 29.6
--- NOTE | 2023-07-14 11:14 | BOWEL_PTH ---
PATIENT: Fany Bowens LOC: [facility] U#:[id number] AGE/SX: 62/F ROOM: RE07/14/[address]: Jaxon Zamorano MD : 1960 BED: DIS: 07/14/2023 SPEC #: [id number] RECD: 07/14/23 13:00 STATUS: PIERCE RE #: [id number] MARTHA: 07/14/23 11:[address]: Jaxon Zamorano DEPT: Surgical Specimen RECD BY: Ariane Delgado ENTERED: 07/14/23 13:00 SP TYPE: Bowel OTHR DR: Kati Massey Tissues: 1 - BIOPSY BOWEL Procedures: GROSS AND MICRO LEVEL 4 Comments: [id number]
[2023-07-14 11:21] VITALS: BP 122/80; PULSE 89; RESP 17; TEMP 36.6; O2SAT 100
[2023-07-14 11:51] VITALS: BP 130/82; PULSE 81; RESP 17; TEMP 37; O2SAT 100
--- NOTE | 2023-07-14 12:07 | W.ANESPOSTOP ---
Postoperative Evaluation Date, Time and Location Date Performed: 07/14/23 Time Performed: 11:54 Patient Location: Day Surgery Unit Vital Signs Most Recent Imported Vital Signs: Most Recent Vital Signs Temp Pulse Resp BP Pulse Ox 37.0 C 81 17 130/82 100 07/14/23 11:51 07/14/23 11:51 07/14/23 11:51 07/14/23 11:51 07/14/23 11:51 Pain Score Most Recent Pain Score: Most Recent Pain Score Pain Level 0 07/14/23 11:51 Assessment Mental Status: Awake (Alert & Oriented to Patient Baseline) Airway and Respiratory Function: Patent airway with normal (patient baseline) respiratory exam Cardiovascular Function: Hemodynamically Stable Hydration Status: Adequately Hydrated Nausea & Vomiting: No Nausea or Vomiting Pain: Pt. Denies Any Pain Peripheral Nerve Block: Patient did not receive a nerve block
== END 2023-07-14 11:57 | disposition home or self-care (01) ==
PROVIDERS: PCP Family Medicine; Visit Provider Surgery
PROC: 0DJD8ZZ Inspection of Lower Intestinal Tract, Via Natural or Artificial Opening Endoscopic (ICD-10-PCS; CPT 45378; principal; 2023-07-14 11:15)
DX: Z12.11 Encounter for screening for malignant neoplasm of colon (principal); Z86.010 Personal history of colon polyps; K63.5 Polyp of colon; K57.30 Diverticulosis of large intestine without perforation or abscess without bleeding; K64.0 First degree hemorrhoids
CPT/HCPCS: 45380; 88305; J2001

== ENCOUNTER 2023-07-16 14:38 | Outpatient (REF) | payer OTHER, SELFPAY ==
[2023-07-16 19:36] LABS: Hemoglobin A1C 5.2 % (<5.7)
[2023-07-16 19:46] LABS: Anion Gap 8.6 mmol/L (3-11); BUN 14 mg/dL (7-18); CO2 26.4 mmol/L (21.0-32.0); CREATININE 0.8 mg/dL (0.55-1.02); Calcium 9.7 mg/dL (8.5-10.1); Chloride 105 mmol/L (98-107); Estimated GFR 83.26 (mL/min/1.73m2); Glucose 101 mg/dL (74-106); Potassium 4.1 mmol/L (3.5-5.1); Sodium 140 mmol/L (136-145); TSH (W/Ref FT4) 0.18 uIU/mL (0.36-3.74)
[2023-07-16 20:05] LABS: FREE T4 0.95 ng/dL (0.76-1.46)
== END 2023-07-16 14:39 | disposition home or self-care (01) ==
LOC: NCHCN 14:38
PROVIDERS: PCP Family Medicine; Visit Provider Family Medicine
DX: Z00.00 Encounter for general adult medical examination without abnormal findings (principal); Z13.1 Encounter for screening for diabetes mellitus; E05.80 Other thyrotoxicosis without thyrotoxic crisis or storm; I10 Essential (primary) hypertension
CPT/HCPCS: 80048; 83036; 84439; 84443

== ENCOUNTER → 2023-07-28 02:35 | Outpatient (CLI) | payer OTHER, SELFPAY ==
--- NOTE | 2023-07-28 | DI.MAMMO_ITS ---
Exam(s) MAMMO SCREENING EXAM: MAMMO SCREENING CLINICAL HISTORY: SCREENING, Z12.39. TECHNIQUE: Bilateral full field digital CC and MLO mammographic images were obtained with 3D tomosyn thesis and utilizing computer aided detection (CAD). COMPARISON: Prior mammograms were reviewed. FINDINGS: There has been no significant change in the appearance and distribution of the fibroglandular tissue. There are no CAD designations. Surgical clips in the breast are unchanged. There are no new spiculated masses nor malignant appearing microcalcification groups. There is no significant architectural distortion nor skin thickening-retraction. IMPRESSION: No radiographic evidence of malignancy. BI-RADS Category 1 - Negative Breast Density - Category B - Scattered areas of fibroglandular density Breast density Category C or D implies that the patient has dense breast tissue. Dense breast tissue can make it harder to find cancer on a mammogram. Dense breast tissue is also associated with an incr eased risk of breast cancer. This information about the result of the mammogram report was provided to the patient to raise their awareness. Use this report when you speak with the patient about their risks for breast cancer, which includes their family history. At that time, you may recommend additional screening tests (Ultrasoun d or MRI) as these tests may add significant information. A negative radiographic report should not delay biopsy if a dominant or clinically suspicious mass is present. Up to ten percent of cancers are not identified on mammography. A negative report may reinforce clinical impression. Adenosis and dense breasts may obscure an underlying neoplasm. False positive reports average 6 to 10%. Patient will receive a letter notifying them of these results.
== END ==
PROVIDERS: PCP Family Medicine; Visit Provider Family Medicine
DX: Z12.31 Encounter for screening mammogram for malignant neoplasm of breast (principal)
CPT/HCPCS: 77063; 77067

== ENCOUNTER 2024-08-25 09:08 | Outpatient (REF) | payer OTHER, SELFPAY ==
[2024-08-25 17:33] LABS: ALT 16 U/L (14-59); AST 19 U/L (15-37); Alkaline Phosphatase 121 U/L (46-116); Anion Gap 7.3 mmol/L (3-11); BUN 13 mg/dL (7-18); Bilirubin, Total 0.49 mg/dL (0.2-1.0); CO2 26.7 mmol/L (21.0-32.0); CREATININE 0.8 mg/dL (0.55-1.02); Calcium 9.1 mg/dL (8.5-10.1); Chloride 108 mmol/L (98-107); Estimated GFR 82.74 (mL/min/1.73m2); Glucose 97 mg/dL (74-106); Potassium 4.2 mmol/L (3.5-5.1); Sodium 142 mmol/L (136-145); TSH (W/Ref FT4) 0.25 uIU/mL (0.36-3.74); Total Protein 7.1 g/dL (6.4-8.2)
[2024-08-25 17:44] LABS: COMMENT (LAB VIEW ONLY) 14.45 mg/dL; Microalb ug/mg Crea 45.7 ug/mg Cr
[2024-08-25 18:02] LABS: FREE T4 0.85 ng/dL (0.76-1.46)
== END 2024-08-25 09:09 | disposition home or self-care (01) ==
LOC: NCHCN 09:08
PROVIDERS: PCP Family Medicine; Visit Provider Family Medicine
DX: I10 Essential (primary) hypertension (principal); E05.90 Thyrotoxicosis, unspecified without thyrotoxic crisis or storm
CPT/HCPCS: 80053; 82043; 82570; 84439; 84443

== ENCOUNTER 2024-09-13 13:58 | Emergency (ER) | payer OTHER, SELFPAY ==
[2024-09-13 14:01] VITALS: BP 143/78; PULSE 117; RESP 16; TEMP 36.8; O2SAT 98
[2024-09-13 14:25] VITALS: PULSE 105; TEMP 36.2
[2024-09-13 15:17] LABS: COVID-19 PCR Negative (Negative); Influenza A PCR Negative (Negative); Influenza B PCR Negative (Negative); RSV PCR Negative (Negative)
[2024-09-13 15:19] LABS: Source Nasopharynx
--- NOTE | 2024-09-13 15:19 | W.ED.GENAD ---
Discharge Plan Disposition Patient Disposition: Home Discharge Details Clinical Impression: Acute pain of left ear Primary Care Provider: Kati Massey ED Provider: Ashwin Dixon Home Meds and New Rx's Prescriptions: New amoxicillin 500 mg capsule 500 mg PO BID Qty: 14 0RF Continued Eliquis 2.5 mg tablet 2.5 mg PO BID losartan 50 mg tablet 50 mg PO DAILY multivitamin Tablet 1 tab PO DAILY magnesium oxide 500 mg tablet 500 mg PO DAILY Patient Comments: more of a winter supplement ibuprofen 200 mg tablet 200 mg PO DIRECTED PRN acetaminophen [Tylenol] 325 MG tablet 650 mg PO Q4H PRN PRNQty: 30 0RF Discharge Instructions Instructions: Ear Infection ED Additional Instructions: You were seen in the emergency department for ear pain. You had an ear infection for which was treated with an antibiotic. As we discussed please return to the emergency department if you develop fevers cannot eat or drink as result of nausea or vomiting or if you have any other concerns. Otherwise please follow-up with your primary care provider next week. Discharge Data Discharge Date/Time-TO BE ENTERED AT DEPARTURE: 09/13/24 16:20 HPI General Date/Time Provider Initiated Documentation: 09/13/24 14:12. HPI Narrative: MDM This is an overall very well-appearing normothermic and initially tachycardic 63-year-old female with left ear pain bulging TM with erythema most consistent with acute otitis media for which patient will receive oral antibiotics using amoxicillin. No conjunctivitis to suggest benefit from amoxicillin clavulanic acid. No pain out of proportion to suggest necrotizing soft tissue infection. No recent cervical spinal manipulation to suggest increased risk for dissection. No focal cranial nerve deficits nor [place]'s sign making my suspicion lower for dissection. No chest pain nausea or vomiting to suggest ACS I did not obtain an ECG. No mastoid tenderness to suggest mastoiditis. Good range of motion in neck so my suspicion is low for retropharyngeal abscess. I considered strep pharyngitis however the patient had no posterior oropharynx erythema so I did not feel that she required a strep swab based on her age and lack of fevers. Uvula midline so my suspicion was low for peritonsillar abscess. Handling secretions so doubt epiglottitis. Not toxic and no significant cough making possibility of bacterial tracheitis well. Clear lungs so doubt pneumonia and no cough nor hypoxia. Patient was swabbed negative for COVID influenza and RSV. She has a remote history of a type III C2 fracture so this certainly could be contributing to her symptoms today. No recurrent trauma no upper extremity neurological deficits to suggest recurrent fracture. No nuchal rigidity to suggest meningitis. Not altered to suggest encephalitis. 09/14 I called patient at home this morning. She reported that she had some persistent pain. She had taken 2 doses of her antibiotics. She was going to take scheduled acetaminophen. I advised her that if her pain worsened or if she develop fevers difficulty swallowing nausea or vomiting that she should return to the emergency department. She understood her return indications and was discharged with empiric trial of expectant outpatient management. Chronic conditions affecting the care of the patient: Multinodular thyroid History obtained from an outside historian: N/A External record review: [facility] [place] Medications: Amoxicillin Social determinants of health affecting disposition: N/A Management discussed with: N/A Treatment/interventions considered: N/A Response to therapies provided: N/A HPI This is a 63-year-old female with history of anticoagulation use on apixaban right in the emergency department via private vehicle with her in the setting of left ear and throat pain. Patient reports that her symptoms began 3 days ago and have steadily gotten worse. She denies fevers chills cough but does endorse some bodyaches. She has had some pain when swallowing. She has used a cotton swab in her ear but this has not improved her symptoms. She has had decreased appetite. She denies any recent chiropractic manipulation. No recent falls. No chest pain nausea nor vomiting. Exam General: Well-appearing in no acute distress speaking in complete sentences. Head: Normocephalic, atraumatic. Eye:[Pupils equal, round reactive to light.] Extraocular eye movements intact. No conjunctival injection. No scleral icterus. Ear, nose, mouth, throat: Left ear Left TM erythematous bulging mildly erythematous. No middle ear effusion. No signs of otitis externa. No mastoid tenderness. Right ear Right TM clear. No middle ear effusion. No signs of otitis externa. No mastoid tenderness. Normal voice, handling secretions normally. Posterior oropharynx with no significant erythema. Uvula midline. Neck: Trachea midline. Cardiovascular: Well-perfused distal extremities. Respiratory: Nonlabored respiration. Clear lungs bilaterally. Gastrointestinal: Nondistended abdomen. Musculoskeletal: No edema. Moving all 4 extremities spontaneously. Full strength sensation bilateral upper extremities. Skin: Normal for age and race, grossly normal temperature and turgor. No acute rash. Neurologic: Alert and appropriate, no apparent acute deficits. Cranial nerves II through XII intact grossly. Psychiatric: Mood and manner are appropriate. Grooming and personal hygiene are appropriate. Related Data Home Medications ?Medication ?Instructions ?Recorded ?Confirmed acetaminophen 325 mg tablet 650 mg (2 x 325 mg) PO Q4H PRN PRN 11/06/17 09/13/24 (Tylenol) #30 tabs apixaban 2.5 mg tablet (Eliquis) 2.5 mg PO BID 11/23/21 09/13/24 ibuprofen 200 mg tablet 200 mg PO DIRECTED PRN 11/23/21 09/13/24 losartan 50 mg tablet 50 mg PO DAILY 11/23/21 09/13/24 magnesium oxide 500 mg PO DAILY 11/23/21 09/13/24 multivitamin 1 tab PO DAILY 11/23/21 09/13/24 amoxicillin 500 mg capsule 500 mg PO BID #14 caps 09/13/24 Previous Rx's ?Medication ?Instructions ?Recorded acetaminophen 325 mg tablet 650 mg (2 x 325 mg) PO Q4H PRN PRN 11/06/17 (Tylenol) #30 tabs amoxicillin 500 mg capsule 500 mg PO BID #14 caps 09/13/24 Allergies Allergy/AdvReac Type Severity Reaction Status Date / Time codeine AdvReac Intermediate Nausea Unverified 09/13/24 14:04 morphine AdvReac Intermediate Nausea Unverified 09/13/24 14:04 General Stated Complaint: Sorethroat CRISTAL: 4 Course Vital Signs Vital signs: Vital Signs Temperature 36.8 C 09/13/24 14:01 Pulse 117 H 09/13/24 14:01 Respiratory Rate 16 09/13/24 14:01 Blood Pressure 143/78 H 09/13/24 14:01 Pulse Oximetry 98 09/13/24 14:01 Temperature 36.2 C L 09/13/24 14:25 Temperature Source Oral 09/13/24 14:25 Pulse 105 H 09/13/24 14:25 Respiratory Rate 16 09/13/24 14:01 Blood Pressure 143/78 H 09/13/24 14:01 Blood Pressure Position Sitting 09/13/24 14:01 Pulse Oximetry 98 09/13/24 14:01 Oxygen Delivery Method Room Air 09/13/24 14:01 Oxygen Flow Rate 0 09/13/24 14:01 Pain Level 9 09/13/24 14:01 Lab/Test Results Lab/Test Results: Laboratory Tests Range/Units 09/13/24 14:24 COVID-19 Source Nasopharynx SARS-CoV-2 (PCR) (Negative) Negative Influenza Type A (PCR) (Negative) Negative Influenza Type B (PCR) (Negative) Negative RSV (PCR) (Negative) Negative Medical Decision Making Quality:SDOH Health Related Social Needs: No Data to Display PFSH All Active Problems (Updated 09/13/24 @ 16:12 by Ashwin Dixon MD) Acute pain of left ear (Acute) Hyperplastic colon polyp (Acute ~07/14/23) Subclinical hypothyroidism (Acute) Multinodular thyroid (Acute) Perimenopausal (Acute) Restless leg syndrome (Acute) Epidermal cyst (Acute) Edema of both legs (Acute) Solitary thyroid nodule (Acute) Facial pain, atypical (Acute) Closed type III fracture of odontoid process (Acute) Elevated ETOH level (Acute) Fall (Acute) Contusion of face (Acute) Medical History (Updated 09/13/24 @ 16:12 by Ashwin Dixon MD) Screen for colon cancer Thyroid cyst Hot flash, menopausal Nocturnal leg cramps Hx of adenomatous colonic polyps Libido, decreased History of deep venous thrombosis (DVT) of distal vein of left lower extremity Lifetime 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[employer] 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 Cholelithiasis Obesity Hypertension Surgical History History of wisdom tooth extraction Colonoscopy - MAC (06/2023) Polups removed Colonoscopy - IV Sedation Cholecystectomy (11/06/17) Biopsy of breast (~2001) Family History Father Personal history of malignant neoplasm Throat cancer Depression Alcohol use disorder Hypertension Social History Smoking/Tobacco Use Status: Never Smoking risk assessment performed?: Yes Alcohol Intake: current Alcohol Intake frequency: holidays/special occasions only Drug use: Never Substance use type: does not use Housing: house Pets and animals: Yes Pets and animals: dog(s) Do you feel safe at home: Yes Do you feel safe in your relationship?: Yes
[2024-09-13 15:39] VITALS: BP 142/78; PULSE 101; O2SAT 100
[2024-09-13] MEDS: Amoxicillin 500 MG CAP PO (15:39)
[2024-09-13] MEDS: Acetaminophen 500 MG TAB 1000 MG PO (15:39)
[2024-09-13 15:59] VITALS: PULSE 95
== END 2024-09-13 16:20 | disposition home or self-care (01) ==
PROVIDERS: Emergency Medicine; Emergency Provider Emergency Medicine; PCP Family Medicine
DX: H92.02 Otalgia, left ear (principal); R07.0 Pain in throat; H66.92 Otitis media, unspecified, left ear
CPT/HCPCS: 87637; 99283

== ENCOUNTER 2024-10-25 09:50 | Outpatient (REF) | payer OTHER, SELFPAY ==
[2024-10-25 16:07] LABS: ALT 14 U/L (14-59); AST 16 U/L (15-37); Albumin 3.9 g/dL (3.4-5.0); Alkaline Phosphatase 115 U/L (46-116); Bilirubin, Direct 0.1 mg/dL (0.0-0.2); Bilirubin, Total 0.52 mg/dL (0.2-1.0); GGT 18 U/L (5-55); Total Protein 6.9 g/dL (6.4-8.2)
[2024-10-25 16:22] LABS: Bilirubin Negative (Negative); Blood Trace-intact (Negative); Clarity Turbid (Clear); Glucose Negative (Negative); Ketones Negative (Negative); Leukocyte Esterase Negative (Negative); Nitrite Negative (Negative); Specific Gravity >= 1.030 (1.005-1.025); Urobilinogen 0.2 mg/dL (Up to 0.2); pH 5.5 (5-8)
[2024-10-25 16:33] LABS: COMMENT (LAB VIEW ONLY) 203.42 mg/dL; Microalb ug/mg Crea 4.7 ug/mg Cr
[2024-10-25 16:35] LABS: Bacteria Negative HPF (Negative); C & S Indicated? No; Casts Negative LPF (Negative); Crystals Many Amorphous HPF (Negative); Epithelial Cells Rare HPF (Negative); Mucus Negative (Negative); RBC 0-2 HPF (0-2); WBC Negative HPF (0-5)
== END 2024-10-25 09:51 | disposition home or self-care (01) ==
LOC: NCHCN 09:50
PROVIDERS: PCP Family Medicine; Visit Provider Family Medicine
DX: R80.9 Proteinuria, unspecified (principal); R74.8 Abnormal levels of other serum enzymes
CPT/HCPCS: 80076; 81003; 81015; 82043; 82570; 82977

== ENCOUNTER 2025-04-21 09:59 | Emergency (ER) | payer OTHER, SELFPAY ==
[2025-04-21] VITALS (21 sets, daily range): BP systolic 106–162; BP diastolic 55–88; PULSE 98–117; RESP 12–27; TEMP 36.5; O2SAT 97–100
--- NOTE | 2025-04-21 10:15 | RT.EKG_ITS ---
APPROVED REPORT Exam: Resting ECG Reason for Exam: chest pain Patient Location: E HR:104 bpm ECG Measurements Heart Rate 104 AXIS UT 139 P 49 QRSd 96 QRS 34 QT 343 T 2 QTc 450 Conclusion Sinus tachycardia...rate> 99 Probable lateral infarct, old...Q>35mS, abnormal ST-T, V5-6 I aVL Physician: No ST elevation or depression. Q3 T3 is present, but no prior terminal S wave.
--- NOTE | 2025-04-21 10:20 | W.ED.GENAD ---
Discharge Plan Disposition Patient Disposition: Home Condition: Good Discharge Details Clinical Impression: Post-nasal drip, Acute upper respiratory infection Primary Care Provider: Kati Massey ED Provider: Kleber Saldivar Home Meds and New Rx's Prescriptions: New loratadine 10 mg tablet 10 mg PO DAILY Qty: 20 0RF No Action Eliquis 2.5 mg tablet 2.5 mg PO BID losartan 50 mg tablet 50 mg PO DAILY multivitamin Tablet 1 tab PO DAILY magnesium oxide 500 mg tablet 500 mg PO DAILY PRN Patient Comments: more of a winter supplement ibuprofen 200 mg tablet 200 mg PO DIRECTED PRN acetaminophen [Tylenol] 325 MG tablet 650 mg PO Q4H PRN PRNQty: 30 0RF Discharge Instructions Instructions: Upper Respiratory Infection ED Additional Instructions: At this time there is no evidence of heart attack, blood clot, pneumonia or other significant abnormality. Please take the loratadine 10 mg every day. Please take the inhaler, 2 puffs every 6 hours for the next week. If you notice any worsening of your symptoms, or any new symptoms such as vomiting, diarrhea, fever, chills, shortness of breath, chest pain, numbness, weakness, or fainting , please return immediately to the emergency department for reevaluation. Please follow up with your primary care provider as soon as possible for reassessment and reevaluation. As always, it was a pleasure participating in your medical care today. Referrals: Kati Massey MD [Primary Care Provider, Medicine] [facility] General Date/Time Provider Initiated Documentation: 04/21/25 10:08. HPI Narrative: 64-year-old female with a past medical history of a DVT on Eliquis, hypertension, previous gallstones, cholecystectomy, previous C1 fracture, previous lower extremity DVT on Eliquis who presents today for evaluation of cough and URI-like symptoms. Patient states that for the last few days that she has had facial congestion, nasal drainage, cough with productive yellow sputum, mild shortness of breath, and central pleuritic chest pain associated with cough. Symptoms have been worsening and not improving. She states that she stopped taking the Eliquis 2 or 3 days ago because she was taking an rvmn-ovr-glijxog supplement that had aspirin in it and she did not want blood to thin. She denies any hemoptysis. She denies any calf or leg pain. She denies any other complaints at this time. She denies history of smoking, but she does have multiple family members that smoke. No personal cardiac history. She does not take any nebulizer or breathing treatments regularly and has not been diagnosed with asthma or COPD. Related Data Home Medications ?Medication ?Instructions ?Recorded ?Confirmed acetaminophen 325 mg tablet 650 mg (2 x 325 mg) PO Q4H PRN PRN 11/06/17 04/21/25 (Tylenol) #30 tabs apixaban 2.5 mg tablet (Eliquis) 2.5 mg PO BID 11/23/21 04/21/25 ibuprofen 200 mg tablet 200 mg PO DIRECTED PRN 11/23/21 04/21/25 losartan 50 mg tablet 50 mg PO DAILY 11/23/21 04/21/25 magnesium oxide 500 mg PO DAILY PRN 11/23/21 04/21/25 multivitamin 1 tab PO DAILY 11/23/21 04/21/25 loratadine 10 mg tablet 10 mg PO DAILY #20 tabs 04/21/25 Previous Rx's ?Medication ?Instructions ?Recorded acetaminophen 325 mg tablet 650 mg (2 x 325 mg) PO Q4H PRN PRN 11/06/17 (Tylenol) #30 tabs loratadine 10 mg tablet 10 mg PO DAILY #20 tabs 04/21/25 Allergies Allergy/AdvReac Type Severity Reaction Status Date / Time codeine AdvReac Intermediate Nausea Unverified 04/21/25 10:10 morphine AdvReac Intermediate Nausea Unverified 04/21/25 10:10 General Stated Complaint: RespSymp CRISTAL: 3 Exam Narrative Exam Narrative: 1.Const: Well-nourished, Well-developed, appearing stated age 2.Eyes: PERRL, no conjunctival injection, and symmetrical lids. 3.ENT: Atraumatic external nose and ears. Moist MM. Neck: Symmetric, trachea midline, No thyromegaly. No evidence of otitis media. No erythema in the posterior oropharynx. 4.CVS: +S1/S2, Peripheral pulses 2+ and equal in all extremities. Brisk capillary refill in all extremities. 5.RESP: Unlabored respiratory effort. Rhonchorous breath sounds with mild intermittent scattered wheezes. 6.GI: Soft, Nontender/Nondistended, No hepatosplenomegaly. No guarding or rebound. 7.MSK: Normocephalic/Atraumatic, Extremities w/o deformity or ttp No cyanosis or clubbing, Normal movement of all extremities. No calf or thigh tenderness. No swelling in lower extremities. 8.Skin: Warm, Dry. No rashes or lesions. 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 Sensation grossly intact, no focal neurologic deficits. 10.Psych: (AAO) x3. Appropriate mood and affect Course Vital Signs Vital signs: Vital Signs Temperature 36.5 C 04/21/25 10:04 Pulse 110 H 04/21/25 10:04 Respiratory Rate 16 04/21/25 10:04 Blood Pressure 151/87 H 04/21/25 10:04 Pulse Oximetry 98 04/21/25 10:04 Temperature 36.5 C 04/21/25 10:09 Pulse 110 H 04/21/25 10:09 Respiratory Rate 16 04/21/25 10:09 Respiratory Effort Normal, Non-Labored 04/21/25 10:11 Blood Pressure 151/87 H 04/21/25 10:09 Pulse Oximetry 98 04/21/25 10:09 Pain Level 8 04/21/25 10:09 Medical Decision Making 64-year-old female with a past medical history of a DVT on Eliquis, hypertension, previous gallstones, cholecystectomy, previous C1 fracture, previous lower extremity DVT on Eliquis who presents today for evaluation of cough and URI-like symptoms. Patient states that for the last few days that she has had facial congestion, nasal drainage, cough with productive yellow sputum, mild shortness of breath, and central pleuritic chest pain associated with cough. Symptoms have been worsening and not improving. She states that she stopped taking the Eliquis 2 or 3 days ago because she was taking an wiwa-ome-flocrox supplement that had aspirin in it and she did not want blood to thin. She denies any hemoptysis. She denies any calf or leg pain. She denies any other complaints at this time. She denies history of smoking, but she does have multiple family members that smoke. No personal cardiac history. She does not take any nebulizer or breathing treatments regularly and has not been diagnosed with asthma or COPD. Exam demonstrates rhonchorous breath sounds, scattered wheezes, normal-appearing URI exam. No calf pain swelling or tenderness. Differential is high for pneumonia or bronchitis, potential viral etiology like COVID and flu is of concern. However with the patient's noncompliance for Eliquis for the last few days, risk factors for PE and DVT, and recurrently elevated heart rate with mild chest pain, PE and less likely ACS are on the differential. EKG shows every 3 T3, but no broad terminal S wave. No signs of STEMI. Will evaluate for these concerning etiologies, monitor closely and reassess. Patient is PERC and Wells positive. EKG 1031: No ST elevation or depression. Q3 T3 is present, but no prior terminal S wave. 1:12 PM Laboratory workup has returned, no significant abnormalities, no white count bandemia or left shift. Mild lymphopenia. VBG is normal suggesting no respiratory acidosis. Electrolytes normal, serial troponins normal, proBNP normal suggesting no signs of heart strain. COVID flu and RSV are negative, CTA shows no evidence of pulmonary embolism or pneumonia. Patient feels much better after breathing treatment. With no significant audible wheezes per subjective improvement after DuoNeb, I do feel that she may have mildly reactive airway disease secondary to the years of secondhand smoking. Patient will be given albuterol inhaler for home use, suspect viral URI causing postnasal drip and current symptomatology. Discussed red flags for which to return. Will prescribe loratadine and inhaler for home use. I have extensively reviewed the treatment plan and discharge instructions with the patient. I have addressed all patient concerns at this time. The patient was made aware of what symptoms to monitor for that would warrant a return to the emergency department. Discussed the plan with the patient, they demonstrate verbal understanding and agreement with our assessment and plan at this time. The documentation in this chart was dictated using [employer] dictation software. Please excuse any dictation errors. FINDINGS: Pulmonary Arteries: No evidence of filling defect to suggest pulmonary emboli. Mediastinum and Michelle: No dominant adenopathy or fluid collection. Pulmonary parenchyma: No consolidation or dominant measurable mass. Pleura: No effusion or pneumothorax. Heart: Trace pericardial effusion, similar to prior. The heart is not dilated. No coronary artery calcifications are seen. Aorta: Thoracic aorta non-dilated. No dissection. Upper abdomen: No acute findings. Bones: Unremarkable for age. Tubes, Catheters, and Lines: None Soft tissues: Unremarkable. IMPRESSION: No evidence of pulmonary embolism. Stable trace pericardial effusion. PFSH All Active Problems (Updated 06/26/25 @ 12:52 by Kleber Saldivar DO) Acute upper respiratory infection (Acute) Post-nasal drip (Acute) Hyperplastic colon polyp (Acute ~07/14/23) Subclinical hypothyroidism (Acute) Multinodular thyroid (Acute) Perimenopausal (Acute) Restless leg syndrome (Acute) Epidermal cyst (Acute) Edema of both legs (Acute) Solitary thyroid nodule (Acute) Facial pain, atypical (Acute) Closed type III fracture of odontoid process (Acute) Elevated ETOH level (Acute) Fall (Acute) Contusion of face (Acute) Medical History (Updated 04/21/25 @ 12:52 by Kleber Saldivar DO) Screen for colon cancer Thyroid cyst Hot flash, menopausal Nocturnal leg cramps Hx of adenomatous colonic polyps Libido, decreased History of deep venous thrombosis (DVT) of distal vein of left lower extremity Lifetime 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[place] [facility] colon polyp Cholelithiasis Obesity Hypertension Surgical History History of wisdom tooth extraction Colonoscopy - MAC (06/2023) Polups removed Colonoscopy - IV Sedation Cholecystectomy (11/06/17) Biopsy of breast (~2001) Family History Father Personal history of malignant neoplasm Throat cancer Depression Alcohol use disorder Hypertension Social History Smoking/Tobacco Use Status: Never Smoking risk assessment performed?: Yes Alcohol Intake: current Alcohol Intake frequency: holidays/special occasions only Drug use: Never Substance use type: does not use Housing: house Pets and animals: Yes Pets and animals: dog(s) Do you feel safe at home: Yes Do you feel safe in your relationship?: Yes PAWSS Have you Been Recently Intoxicated or Drunk Within the Last 30 days?: No Have you Ever Experienced Previous Episodes of Alcohol Withdrawal?: No Have you ever Experienced Withdrawal Seizures?: No Have you ever Experienced Delirium Tremens(DT)s?: No Have you ever undergone Alcohol Rehabilitation Treatment (i.e, inpt ot outpatient treatment programs)?: No Have you ever Experienced Blackouts?: No Have you ever Combined Alcohol with other Downers within the last 90 days?: No Have you ever Combined Alcohol with any other Substance of Abuse during the last 90 days?: No Positive Blood Alcohol level on Presentation? [PCS.BAL]: No Evidence of Increased Autonomic Activity (i.e. HR>120, tremor, sweating, agitation, nausea)?: No Result: 0
[2025-04-21] MEDS: Normal Saline 500 ML IV (10:34)
[2025-04-21] MEDS: Albuterol/Ipratropium 3 ML UPD VIAL UPD (10:34)
[2025-04-21 10:37] LABS: Abs Immature Grans 0.01 10^3/uL (0.0-0.06); Absolute Basophil Count 0.04 10^3/uL (0.0-0.2); Absolute Eosinophil Count 0.12 10^3/uL (0.0-0.7); Absolute Lymphocyte Count 1.01 10^3/uL (1.2-3.4); Absolute Monocyte Count 0.58 10^3/uL (0.1-0.8); Absolute Neutrophil Count 2.23 10^3/uL (1.2-6.7); BE (Venous) 1 mmol/L (-2-3); HCO3 (Venous) 27 mmol/L (23-28); HCT 43.8 % (36.0-46.0); HGB 14.8 g/dL (11.2-15.7); Immature Grans % 0.3 %; Lymphocytes % 25.3 %; MCH 30.7 pg (27.0-33.0); MCHC 33.8 % (32.0-36.0); MCV 91 fL (80-95); MPV 9.2 fL (8.0-11.0); Monocytes % 14.5 %; Neutrophils % 55.9 %; O2 Sat (Venous) 55 %; Platelet Count 199 10^3/uL (130-400); RBC 4.82 10^6/uL (3.93-5.22); RDW 12.5 % (11.7-14.6); RDW-SD 41.3 fL; TCO2 (Venous) 24 mmol/L (24-29); WBC 3.99 10^3/uL (4.4-10.8); pCO2 (Venous) 48 mmHg (41-51); pH (Venous) 7.35 (7.31-7.41); pO2 (Venous) 28 mmHg
[2025-04-21 10:52] LABS: PTT Activated 25.7 sec (20.6-30.2); Prothrombin Time 9.9 sec (9.1-11.1)
[2025-04-21 11:06] LABS: ALT 18 U/L (14-59); AST 18 U/L (15-37); Albumin 4.1 g/dL (3.4-5.0); Alkaline Phosphatase 116 U/L (46-116); Anion Gap 8.4 mmol/L (3-11); BUN 11 mg/dL (7-18); Bilirubin, Total 0.5 mg/dL (0.2-1.0); CO2 27.6 mmol/L (21.0-32.0); CREATININE 0.7 mg/dL (0.55-1.02); Calcium 9.1 mg/dL (8.5-10.1); Chloride 104 mmol/L (98-107); Estimated GFR 96.52 (mL/min/1.73m2); Glucose 99 mg/dL (74-106); NT-proBNP 114 pg/mL (<300); Potassium 4.3 mmol/L (3.5-5.1); Sodium 140 mmol/L (136-145); Total Protein 7.8 g/dL (6.4-8.2); Troponin I 4 ng/L (<or=51)
[2025-04-21 11:45] LABS: COVID-19 PCR Negative (Negative); Influenza A PCR Negative (Negative); Influenza B PCR Negative (Negative); RSV PCR Negative (Negative)
[2025-04-21 11:45] LABS: Troponin I 5 ng/L (<or=51)
[2025-04-21 11:47] LABS: Source Nasopharynx
[2025-04-21] MEDS: Omnipaque 350 MG/ML 500 ML BTL-Imaging package 66 ML IJ (12:22)
[2025-04-21] MEDS: Normal Saline - Diluent 50 ML VIAL IJ (12:24)
--- NOTE | 2025-04-21 12:24 | DI.CT_ITS ---
Exam(s) CT CHEST PE CTA EXAM: CT CHEST PE CTA CLINICAL HISTORY: Hx of DVT, stopped taking Eliquis, now CP/tachy. TECHNIQUE: Imaging Protocol: Axial CT angiography was performed with multi- slice acquisition and multi-planar reconstructions as well as axial, coronal and sagittal MIP reconstructions. Computer aided detection (CAD) was utilized. CONTRAST MATERIAL: Intravenous: Omnipaque 350 Contrast volume:66 ml COMPARISON: No exams were available for comparison FINDINGS: Pulmonary Arteries: No evidence of filling defect to suggest pulmonary emboli. Mediastinum and Michelle: No dominant adenopathy or fluid collection. Pulmonary parenchyma: No consolidation or dominant measurable mass. Pleura: No effusion or pneumothorax. Heart: Trace pericardial effusion, similar to prior. The heart is not dilated. No coronary artery calcifications are seen. Aorta: Thoracic aorta non-dilated. No dissection. Upper abdomen: No acute findings. Bones: Unremarkable for age. Tubes, Catheters, and Lines: None Soft tissues: Unremarkable. IMPRESSION: No evidence of pulmonary embolism. Stable trace pericardial effusion. RADIATION DOSE DELIVERED: 80.57mGy.cm Total DLP DATA REPOSITORY: All CT scans at this facility are submitted to the National Radiology Data Registry (NRDR) Dose Index Registry (DIR) with the [employer] (ACR). RADIATION OPTIMIZATION: All CT scans at this facility use at least one of these dose optimization techniques: automated exposure control; mA and/or kV adjustment per patient size (includes targeted exams where dose is matched to clinical indication); or iterative reconstruction.
[2025-04-21] MEDS: Loratidine 10 MG TAB PO (12:59)
[2025-04-21] MEDS: Albuterol HFA 8 GM 60 PUFF INH IH (12:59)
== END 2025-04-21 13:06 | disposition home or self-care (01) ==
PROVIDERS: Emergency Provider Student in an Organized Health Care Education/Training Program; PCP Family Medicine
DX: J06.9 Acute upper respiratory infection, unspecified (principal); R09.82 Postnasal drip; R07.89 Other chest pain; R06.02 Shortness of breath; Z79.01 Long term (current) use of anticoagulants; I10 Essential (primary) hypertension
CPT/HCPCS: 99284; 99285; 94640; 71275; 80053; 82805; 87637; 93005; 96360; 83880; 84484; 85025; 85610; 85730; 93010; J7620

== ENCOUNTER 2025-08-29 19:11 | Outpatient (REF) | payer OTHER, SELFPAY ==
--- NOTE | 2025-08-29 16:00 | PAPFT_PTH ---
PATIENT: Fany Bowens LOC: [facility]#:[id number] AGE/SX: 64/F ROOM: RE08/29/[address]: Kati Massey : 1960 BED: DIS: 08/29/2025 SPEC #: [id number] RECD: 08/30/25 12:36 STATUS: PIERCE MAX #: [id number] MARTHA: 08/29/25 16:[address]: Kati Massey DEPT: [facility] Cytology RECD BY: Ariane Delgado Tissues: 1 - CX/ENDOCX FOR PAP SMEARS Procedures: PAP THIN PREP/UVM Screening HPV DNA PROBE Comments: [id number] (HPV 16 & 18/45)
[2025-08-29 21:21] LABS: TSH 0.02 uIU/mL (0.36-3.74)
== END 2025-08-29 19:12 | disposition home or self-care (01) ==
LOC: NCHCN 19:11
PROVIDERS: PCP Family Medicine; Visit Provider Family Medicine
DX: E05.90 Thyrotoxicosis, unspecified without thyrotoxic crisis or storm (principal); Z12.4 Encounter for screening for malignant neoplasm of cervix
CPT/HCPCS: 88142; 84439; 84443; 87624

== ENCOUNTER → 2025-10-21 00:07 | Outpatient (CLI) | payer OTHER, SELFPAY ==
--- NOTE | 2025-10-21 10:16 | DI.MAMMO_ITS ---
Exam(s) MAMMO SCREENING EXAM: MAMMO SCREENING CLINICAL HISTORY: SCREENING, Z12.31. TECHNIQUE: Bilateral full field digital CC and MLO mammographic images were obtained with 3D tomosynthesis and utilizing computer aided detection (CAD). COMPARISON: Prior mammograms were reviewed. FINDINGS: There has been no significant change in the appearance and distribution of the fibroglandular tissue. Surgical clips in the left breast are again noted no new findings in this vicinity. There are no new spiculated masses nor malignant appearing microcalcification groups. There is no significant architectural distortion nor skin thickening-retraction. IMPRESSION: No radiographic evidence of malignancy. BI-RADS Category 1 - Negative Breast Density - Category B - There are scattered areas of fibroglandular density. Breast density Category C or D implies that the patient has dense breast tissue. Dense breast tissue can make it harder to find cancer on a mammogram. Dense breast tissue is also associated with an increased risk of breast cancer. This information about the result of the mammogram report was provided to the patient to raise their awareness. Use this report when you speak with the patient about their risks for breast cancer, which includes their family history. At that time, you may recommend additional screening tests (Ultrasound or MRI) as these tests may add significant information. A negative radiographic report should not delay biopsy if a dominant or clinically suspicious mass is present. Up to ten percent of cancers are not identified on mammography. A negative report may reinforce clinical impression. Adenosis and dense breasts may obscure an underlying neoplasm. False positive reports average 6 to 10%. Patient will receive a letter notifying them of these results.
== END ==
LOC: DI 00:07
PROVIDERS: PCP Family Medicine; Visit Provider Family Medicine
DX: Z12.31 Encounter for screening mammogram for malignant neoplasm of breast (principal); R92.323 Mammographic fibroglandular density, bilateral breasts
CPT/HCPCS: 77063; 77067